=== PATIENT | male | born 1945 | race Caucasian/White ===

== ENCOUNTER 2019-12-23 13:48 | Inpatient (IN) | payer MEDICARE, BC ==
[~2019-12-23 13:48] MED LIST: Heparin 1,000 UNITS/ML VIAL ONE
[2019-12-23] MEDS ORDERED: EPINEPHrine 1 MG/10 ML Abboject SYRINGE ONE (13:50)
[2019-12-23] MEDS ORDERED: Norepinephrine 8 MG/0.9% NS 250 ML ONE (13:59)
[2019-12-23 14:30] LABS: Hemoglobin 7.6 g/dL (14.0-18.0); Mean Corpuscular HGB CONC 34.3 g/dL (32.0-36.0); Mean Corpuscular Hemoglobin 32.8 pg (27.0-31.0); Mean Corpuscular Volume 95.5 fL (78.0-98.0); Mean Platelet Volume 8.9 fL (7.4-10.4); Platelet Count 200 thou/uL (130-400); Red Blood Cell (RBC) Count 2.33 mill/uL (4.70-6.10)
[2019-12-23] MEDS ORDERED: Cefepime 2 GM VIAL ONE (14:47)
[2019-12-23 14:50] LABS: ALT (SGPT) 24 U/L (8-55); AST (SGOT) 68 U/L (5-34); Albumin 2.7 g/dL (3.4-4.8); Alkaline Phosphatase 123 U/L (40-110); Anion Gap 16 mmol/L (10-20); BUN (Urea Nitrogen) 29 mg/dL (8.4-25.7); Bilirubin, Total 0.4 mg/dL (0.2-1.2); Calc. Creatinine Clearance 0 mL/min (70-130); Calcium 8.4 mg/dL (7.8-10.44); Carbon Dioxide 17 mmol/L (23-31); Chloride 98 mmol/L (98-107); Estimated GFR-MDRD 40; Glucose 97 mg/dL (83-110); Potassium 5.2 mmol/L (3.5-5.1); Protein, Total 7.7 g/dL (5.8-8.1); Sodium 126 mmol/L (136-145)
[2019-12-23 14:58] LABS: Anisocytosis SLIGHT = 6-15 cells (100X) (0-5/hpf); Band 6 % (5-11); Lymphocytes 13 % (21-51); MDiff Complete? YES; Monocytes 14 % (0-10); Myelocyte 2 % (0-0); Neutrophil 65 % (42-75); Ovalocytes SLIGHT = 2-5 cells (100X) (0-1/hpf); Platelet Morphology Comment Appears Adequate; Poikilocytosis SLIGHT = 6-15 cells (100X) (0-5/hpf); Polychromasia SLIGHT = 2-3 cells (100X) (0-2/hpf); Spherocytes SLIGHT = 1-5 cells (100X) (None Seen); Tear Drops SLIGHT = 2-5 cells (100X) (0-1/hpf)
[2019-12-23 15:32] LABS: SARS-CoV-2 NAA Rapid Test Not Detected (NotDetected)
[2019-12-23 17:23] LABS: Lactic Acid 3.8 mmol/L (0.5-2.2)
--- NOTE | 2019-12-23 17:54 | RAD ---
PORTABLE CHEST: 12/23/19 PROVIDED CLINICAL HISTORY: Dyspnea. COMPARISON: 08/12/10. The cardiac silhouette appears enlarged. Median sternotomy changes are seen. Bilateral mid and lower lung zone air space disease with blunting of the right costophrenic angle that may reflect pleural fl uid. There is no evidence for pneumothorax. IMPRESSION: 1. Cardiomegaly. 2. Bilateral mid to lower lung zone consolidation, compatible with pneumonia in the appropriate clinical context. Follow-up is recommended. POS: CARY
[2019-12-23] MEDS ORDERED: Norepinephrine 8 MG/0.9% NS 250 ML IVPB SCH (18:30)
[2019-12-23] MEDS ORDERED: Acetaminophen 325 MG TAB PO PRN (18:30)
[2019-12-23] MEDS ORDERED: Ondansetron ODT 4 MG TAB SL PRN (18:30)
[2019-12-23] MEDS ORDERED: Ondansetron PF 4 MG/2 ML Vial IVP PRN (18:30)
[2019-12-23] MEDS ORDERED: HYDROcodone/Acetaminophen 5/325 mg Tablet PO PRN ×2 (18:30)
--- NOTE | 2019-12-23 19:05 | PDOC.HHP ---
Hospitalist HPI - History of Present Illness SOB and cough History of Present Illness: 74 YO M with a PMH of COPD on home O2, MDS and CAD who presented with c/o SOB and coughx 1 week duration. Pt was diagnosed with MDS earlier this year and just started chemo last week. He had chemo M-F x 5 days. Over the past few days, he has had SOB, CROSS and cough which have gotten progressively worse. Cough is non productive. No fever or chills. Upon presentation the ER, CXR shows BL PNA. Pt was also hypotensive requiring pressors. He was therefore admitted to the IMU for further mgt. Hospitalist ROS - Review of Systems Constitutional: reports: weakness, malaise. denies: fever, chills, sweats, other Eyes: denies: pain, vision change, conjunctivae inflammation, eyelid inflammation, redness, other ENT: denies: ear pain, ear discharge, nose pain, nose discharge, nose congestion, mouth pain, mouth swelling, throat pain, throat swelling, other Respiratory: reports: cough, shortness of breath, SOB with excertion. denies: dry, hemoptysis, pleuritic pain, sputum, wheezing, other Cardiovascular: denies: chest pain, palpitations, orthopnea, paroxysmal noc. dyspnea, edema, light headedness, other Gastrointestinal: denies: nausea, vomiting, abdominal pain, diarrhea, constipation, melena, hematochezia, other Genitourinary: denies: dysuria, frequency, incontinence, hematuria, retention, other Musculoskeletal: denies: neck pain, shoulder pain, arm pain, back pain, hand pain, leg pain, foot pain, other Skin: denies: rash, lesions, dinesh, bruising, other Neurological: reports: weakness. denies: numbness, incoordination, change in speech, confusion, seizures, other Hospitalist History - Past Medical History Cardiac: reports: CAD Pulmonary: reports: COPD Heme/Onc: reports: Other (MDS) - Past Surgical History Past Surgical History: reports: CABG, Hernia Repair - Family History Family History: reports: hypertension - Social History Smoking Status: Former smoker Tobacco Type: cigarettes Alcohol: reports: None Living Situation: With Family Domestic Violence: Negative Activity level: independent ambulation - Exam General Appearance: NAD, awake alert Eye: PERRL, anicteric sclera ENT: normocephalic atraumatic, no oropharyngeal lesions Neck: supple, symmetric, no JVD, no thyromegaly Heart: RRR, no murmur, no gallops, no rubs Respiratory: CTAB, no wheezes, no rales, no ronchi, normal chest expansion Gastrointestinal: soft, non-tender, non-distended, normal bowel sounds Extremities: no cyanosis, no clubbing, no edema Skin: normal turgor, no rashes Neurological: cranial nerve grossly intact, no focal deficits Musculoskeletal: normal tone, normal strength, no muscle wasting Psychiatric: normal affect, A&O x 3, oriented to place Hospitalist Results - Labs Result Diagrams: 12/23/19 14:17 12/23/19 14:17 Lab results: WBC 7.0 thou/uL (4.8-10.8) 12/23/19 14:17 Hgb 7.6 g/dL (14.0-18.0) L 12/23/19 14:17 Hct 22.3 % (42.0-52.0) L 12/23/19 14:17 MCV 95.5 fL (78.0-98.0) 12/23/19 14:17 Plt Count 200 thou/uL (130-400) 12/23/19 14:17 Band Neuts % (Manual) 6 % (5-11) 12/23/19 14:17 Sodium 126 mmol/L (136-145) L 12/23/19 14:17 Potassium 5.2 mmol/L (3.5-5.1) H 12/23/19 14:17 Chloride 98 mmol/L (98-107) 12/23/19 14:17 Carbon Dioxide 17 mmol/L (23-31) L 12/23/19 14:17 BUN 29 mg/dL (8.4-25.7) H 12/23/19 14:17 Creatinine 1.68 mg/dL (0.7-1.3) H 12/23/19 14:17 Glucose 97 mg/dL (83-110) 12/23/19 14:17 Lactic Acid 3.8 mmol/L (0.5-2.2) H 12/23/19 16:54 Calcium 8.4 mg/dL (7.8-10.44) 12/23/19 14:17 Total Bilirubin 0.4 mg/dL (0.2-1.2) 12/23/19 14:17 AST 68 U/L (5-34) H 12/23/19 14:17 ALT 24 U/L (8-55) 12/23/19 14:17 Alkaline Phosphatase 123 U/L (40-110) H 12/23/19 14:17 Serum Total Protein 7.7 g/dL (5.8-8.1) 12/23/19 14:17 Albumin 2.7 g/dL (3.4-4.8) L 12/23/19 14:17 Hospitalist H&P A/P - Problem (1) MONIQUE (acute kidney injury) Code(s): N17.9 - ACUTE KIDNEY FAILURE, UNSPECIFIED Status: Acute Assessment and Plan: Will hydrate and monitor Cr. (2) Acute and chronic respiratory failure with hypoxia Code(s): J96.21 - ACUTE AND CHRONIC RESPIRATORY FAILURE WITH HYPOXIA Status: Acute Assessment and Plan: Pt uses 2L of O2 at home. Will cont O2 support. (3) COPD (chronic obstructive pulmonary disease) Status: Acute Assessment and Plan: Will add sterois and nebs given acute illness. (4) PNA (pneumonia) Code(s): J18.9 - PNEUMONIA, UNSPECIFIED ORGANISM Status: Acute Assessment and Plan: Will get CT of chest to r/o effusion. Will consider getting CTA due to recent MDS and chemos hx when cr improves. Cont current abx, nebs and steroids (5) MDS (myelodysplastic syndrome) Code(s): D46.9 - MYELODYSPLASTIC SYNDROME, UNSPECIFIED Status: Acute Assessment and Plan: S/p recent chemo. Can follow up with his Onc after dc. (6) Sepsis Code(s): A41.9 - SEPSIS, UNSPECIFIED ORGANISM Status: Acute Qualifiers: Sepsis type: sepsis due to unspecified organism Acute respiratory failure type: with hypoxia Severe sepsis shock status: with septic shock Assessment and Plan: Pt was started on pressors. Will wean as tolerated. Cobt IVF and abx. (7) Hypotension Status: Acute Assessment and Plan: On pressors. Wean as tolerated - Plan Plan: PPx: SCDs and Lovenox. CODE: FULL. Dispo: Admit as inpt.
--- NOTE | 2019-12-23 19:15 | RAD ---
Chest AP view INDICATION: History of sepsis COMPARISON: Prior exam dated December 23, 2019 FINDINGS: Lungs: Worsening bilateral airspace disease consistent with pneumonia Cardiac silhouette: There is persistent moderate cardiomegaly Pulmonary vasculature: There is mild pulmonary vascular congestion appears slightly more pronounced Pleural spaces: There are small bilateral pleural effusions that appears slightly more pronounced Upper abdomen: No abnormality seen. Osseous structures: Midline sternotomy changes are stable Additional findings: None. IMPRESSION: 1. Worsening bilateral pneumonia. 2. Persistent moderate cardiomegaly with slightly more pronounced pulmonary vascular congestion and s mall bilateral pleural effusions. Component of CHF is suspected.
[2019-12-23 19:48] LABS: Hemoglobin 7.6 g/dL (14.0-18.0); Mean Corpuscular HGB CONC 32.8 g/dL (32.0-36.0); Mean Corpuscular Hemoglobin 31.5 pg (27.0-31.0); Mean Corpuscular Volume 96.1 fL (78.0-98.0); Mean Platelet Volume 8.8 fL (7.4-10.4); Platelet Count 218 thou/uL (130-400); RBC Distribution Width 17.2 % (11.5-14.5); Red Blood Cell (RBC) Count 2.42 mill/uL (4.70-6.10); White Blood Cell (WBC) Count 6.2 thou/uL (4.8-10.8)
[2019-12-23 20:00] LABS: ALT (SGPT) 55 U/L (8-55); AST (SGOT) 116 U/L (5-34); Albumin 2.6 g/dL (3.4-4.8); Alkaline Phosphatase 252 U/L (40-110); Anion Gap 13 mmol/L (10-20); BUN (Urea Nitrogen) 27 mg/dL (8.4-25.7); Bilirubin, Total 0.3 mg/dL (0.2-1.2); Calc. Creatinine Clearance 49 mL/min (70-130); Calcium 7.8 mg/dL (7.8-10.44); Carbon Dioxide 18 mmol/L (23-31); Chloride 102 mmol/L (98-107); Estimated GFR-MDRD 43; Globulin 4.9 g/dL (2.4-3.5); Glucose 108 mg/dL (83-110); Potassium 4.9 mmol/L (3.5-5.1); Protein, Total 7.5 g/dL (5.8-8.1); Sodium 128 mmol/L (136-145)
[2019-12-23 20:05] LABS: Band 9 % (5-11); Eosinophils 3 % (0-10); Hypochromia SLIGHT = 6-15 cells (100X) (0-5/hpf); Lymphocytes 27 % (21-51); MDiff Complete? YES; Monocytes 13 % (0-10); Neutrophil 48 % (42-75); Nucleated RBC 2 % (0); Platelet Morphology Comment Appears Adequate
[2019-12-23] MEDS: Sodium Chloride 0.9% 1,000 ML IV SCH (20:55)
[2019-12-23] MEDS: Enoxaparin Sodium 40 MG/0.4 ML SYRINGE SC SCH (21:44)
[2019-12-23] MEDS: methylPREDNISolone Sod Succ 40 MG VIAL IVP SCH (21:48)
[2019-12-23] MEDS: Cefepime 2 GM in Sodium Chloride 0.9% 100 ML IVPB SCH (21:57)
[2019-12-24] MEDS: Sodium Chloride 0.9% 1,000 ML IV SCH (02:25)
[2019-12-24 04:14] LABS: Hemoglobin 7.9 g/dL (14.0-18.0); Mean Corpuscular HGB CONC 32.6 g/dL (32.0-36.0); Mean Corpuscular Hemoglobin 31.5 pg (27.0-31.0); Mean Corpuscular Volume 96.5 fL (78.0-98.0); Mean Platelet Volume 8.6 fL (7.4-10.4); Platelet Count 202 thou/uL (130-400); Red Blood Cell (RBC) Count 2.51 mill/uL (4.70-6.10); White Blood Cell (WBC) Count 5.7 thou/uL (4.8-10.8)
[2019-12-24 04:15] LABS: Band 3 % (5-11); Elliptocytes SLIGHT = 2-5 cells (100X) (0-1/hpf); Lymphocytes 6 % (21-51); MDiff Complete? YES; Monocytes 10 % (0-10); Neutrophil 81 % (42-75); Nucleated RBC 1 % (0); Platelet Morphology Comment Appears Adequate
[2019-12-24 04:26] LABS: ALT (SGPT) 47 U/L (8-55); AST (SGOT) 80 U/L (5-34); Albumin 2.7 g/dL (3.4-4.8); Alkaline Phosphatase 229 U/L (40-110); Anion Gap 16 mmol/L (10-20); BUN (Urea Nitrogen) 28 mg/dL (8.4-25.7); Bilirubin, Total 0.3 mg/dL (0.2-1.2); Calc. Creatinine Clearance 51 mL/min (70-130); Calcium 7.9 mg/dL (7.8-10.44); Carbon Dioxide 15 mmol/L (23-31); Chloride 104 mmol/L (98-107); Estimated GFR-MDRD 45; Glucose 99 mg/dL (83-110); Potassium 5.5 mmol/L (3.5-5.1); Protein, Total 7.7 g/dL (5.8-8.1); Sodium 129 mmol/L (136-145)
[2019-12-24 04:39] LABS: Bacteria/HPF None Seen HPF (None Seen); Bilirubin Negative (Negative); Blood, Urine 1+ (Negative); Clarity Clear (Clear); Glucose, Urine (Dipstick) Normal (Negative); Ketone, Urine Trace mg/dL (Negative); Leukocyte Negative Leu/uL (Negative); Nitrite Negative (Negative); Protein, Urine (Dipstick) 50 mg/dL (Neg-Trace); Specific Gravity, Urine 1.024 (1.002-1.036); Squamous Epithelial None Seen HPF (0-3); Urobilinogen Normal mg/dL (Less than 2); WBC/HPF 0-3 HPF (0-3)
[2019-12-24 04:40] LABS: Urine Culture Reflex No No
[2019-12-24] MEDS: Cefepime 2 GM in Sodium Chloride 0.9% 100 ML IVPB SCH ×3 (06:09→21:28)
[2019-12-24] MEDS: methylPREDNISolone Sod Succ 40 MG VIAL IVP SCH ×3 (06:10→21:29)
[2019-12-24] MEDS ORDERED: FLU VACC QS2020-21(65YR UP)/PF 240 MCG/0.7 ML SYRINGE IM ONE (09:00)
[2019-12-24] MEDS ORDERED: Furosemide 40 MG/4 ML VIAL SLOW IVP SCH (09:30)
[2019-12-24] MEDS ORDERED: Tamsulosin HCl 0.4 MG CAP PO SCH (10:00)
--- NOTE | 2019-12-24 12:39 | CT ---
CT CHEST WITHOUT CONTRAST: 12/24/19 PROVIDED CLINICAL HISTORY: Pneumonia. COMPARISON: None. FINDINGS: The heart is enlarged. Vascular calcification, including coronary calcium, is seen. Median sternotomy changes are seen. There is extensive bilateral interstitial thickening and mixed ground glass opacity involving both kenisha ngs, primarily within the mid to lower lung zones, with relative sparing of the apices. There is no f rank consolidation evident. There is bilateral pleural fluid, small in degree. There is no evidence f or pneumothorax. The airway appears patent and of normal caliber. There is no evidence for thoracic lymph node enlargement with limitations due to lack of IV contrast material. The osseous structures demonstrate no concerning lytic or blastic lesions. The visualized portions of the upper abdomen appear unremarkable. IMPRESSION: Extensive bilateral interstitial and alveolar lung opacification involving the mid to lower lung zone s bilaterally with associated small pleural effusions. Given the lack of comparison examinations, inc luding lack of prior radiographs more recent than 2011, the chronicity of these findings is not certa in. Findings could reflect acute, chronic or acute on chronic processes, including infection, inflamm ation and fibrosis. Correlation with concerns for COVID pneumonia is recommended. Followup is recomme nded. Pulmonary consultation may be useful as indicated. POS: CARY
[2019-12-24] MEDS: Furosemide 40 MG/4 ML VIAL SLOW IVP SCH (13:49)
--- NOTE | 2019-12-24 13:54 | PDOC.HOSPP ---
- Subjective Encounter Date: 12/24/19 Encounter Time: 12:00 Subjective: has sob, no chest pain or palp says he had cardiac cath 2 weeks back at [facility] by when he was hospitalized there for cardiac reasons per patient he does not know if he has heart failure, neither does his girl friend at be dside he has discharged on home O2 2 weeks back quit smoking >10 yrs back he ambulates using walker from 2 weeks prior to that without asst devices. - Objective Vital Signs & Weight: Vital Signs (12 hours) Temp 12/24/19 11:14 98.2 F 12/24/19 07:20 98.0 F 12/24/19 03:46 97.3 F L Weight Weight 185 lb 3.013 oz Most Recent Monitor Data Heart Rate from ECG 96 NIBP 143/95 NIBP BP-Mean 111 Respiration from ECG 33 SpO2 100 I&O: 12/23/19 12/24/19 12/25/19 07:59 06:59 06:59 Intake Total 240 Output Total 350 Balance -110 Result Diagrams: 12/24/19 03:53 12/24/19 03:53 Hospitalist ROS - Medication Medications: Active Medications Generic Name Dose Route Start Last Admin Trade Name Freq PRN Reason Stop Dose Admin Enoxaparin Sodium 40 mg 12/23/19 21:00 12/23/19 21:44 Enoxaparin Sodium 40 Mg/0.4 Ml Syringe SC 40 mg 2100 DORIAN Administration Cefepime HCl 2 gm/ Sodium 100 mls @ 200 mls/hr 12/23/19 22:00 12/24/19 06:09 Chloride IVPB 100 mls Q8HR DORIAN Administration Methylprednisolone Sodium Succinate 40 mg 12/23/19 22:00 12/24/19 06:10 Methylprednisolone Sod Succ 40 Mg Vial IVP 40 mg Q8HR DORIAN Administration - Exam General Appearance: awake alert Eye: PERRL, anicteric sclera ENT: no oropharyngeal lesions, moist mucosa Neck: supple, JVD Heart: RRR, no murmur Respiratory: no wheezes, rales, rhonchi Gastrointestinal: soft, non-tender, non-distended, normal bowel sounds Extremities: no cyanosis, no edema Neurological: cranial nerve grossly intact, no focal deficits Psychiatric: normal affect, A&O x 3 Hosp A/P (1) Acute exacerbation of CHF (congestive heart failure) Code(s): I50.9 - HEART FAILURE, UNSPECIFIED Status: Suspected (2) MONIQUE (acute kidney injury) Code(s): N17.9 - ACUTE KIDNEY FAILURE, UNSPECIFIED Status: Acute (3) CAD (coronary artery disease) Code(s): I25.10 - ATHSCL HEART DISEASE OF [place] CORONARY ARTERY W/O ANG PCTRS Status: Chronic Qualifiers: Coronary Disease-Associated Artery/Lesion type: bypass graft [place] vs. transplanted heart: [place] heart Associated angina: without angina Qualified Code(s): I25.810 - Atherosclerosis of coronary artery bypass graft(s) without angina pectoris (4) COPD (chronic obstructive pulmonary disease) Status: Chronic Qualifiers: COPD type: COPD with acute exacerbation Qualified Code(s): J44.1 - Chronic obstructive pulmonary disease with (acute) exacerbation (5) Acute and chronic respiratory failure with hypoxia Code(s): J96.21 - ACUTE AND CHRONIC RESPIRATORY FAILURE WITH HYPOXIA Status: Acute (6) MDS (myelodysplastic syndrome) Code(s): D46.9 - MYELODYSPLASTIC SYNDROME, UNSPECIFIED Status: Chronic (7) PNA (pneumonia) Code(s): J18.9 - PNEUMONIA, UNSPECIFIED ORGANISM Status: Suspected Qualifiers: Pneumonia type: due to unspecified organism Laterality: bilateral (8) Sepsis Code(s): A41.9 - SEPSIS, UNSPECIFIED ORGANISM Status: Suspected Qualifiers: Sepsis type: sepsis due to unspecified organism Acute respiratory failure type: with hypoxia - Plan staff to obtain recent records from [facility] including cath/echo reports if available start gentle diuresis hypotension has resolved not sure if he was given steroids or his baseline cbc in view of MDS not sure what chemotherapy was initiated a week back for MDS continue vanc, cefepime, steroids, nebs cardiac and pulm consultations, echo for lv function alb is 2.7, h/h 7/24, creatinine around 1.5 has h/o cabg done >10 yrs back by , recent cath 2 weeks back by , PCP is Dr. Taras Bhatia PT to mobilize as tolerated is on nasal canula O2 tx to tele has underlying bph, start flomax d/w patient and girlfriend at bedside
[2019-12-24] MEDS ORDERED: Carvedilol 6.25 MG TAB PO SCH (14:30)
[2019-12-24] MEDS ORDERED: Vancomycin 1.5 GRAM/300 ML BAG 1.5 GM in Premix Bag 1 BAG IVPB SCH (15:00)
[2019-12-24] MEDS: hydrALAZINE 10 MG TAB PO SCH ×2 (15:56→21:29)
--- NOTE | 2019-12-24 20:29 | CON ---
DATE OF CONSULTATION: HISTORY OF PRESENT ILLNESS: The patient is a 74-year-old gentleman with a history of coronary artery disease, who presents with increasing dyspnea. The patient has a history of coronary artery bypass surgery x4. The patient is followed by Dr. Cole Jara at [facility]. He was recently admitted to the [facility] with chest pain. He underwent a cardiac catheterization and was apparently found to have patent coronary bypass grafts. He recently started on chemotherapy for myelodysplastic syndrome. The patient was admitted also with increasing dyspnea. He was hypotensive and was admitted to the ICU. The patient denies having any chest discomfort. He reports that he still feels markedly dyspneic. PAST MEDICAL HISTORY: 1. CAD. 2. Myelodysplastic syndrome. 3. Congestive heart failure. 4. Hypertension. PAST SURGICAL HISTORY: Hernia surgery and a coronary bypass graft surgery. SOCIAL HISTORY: Nonsmoker. MEDICATIONS: 1. Coreg 6.25 b.i.d. 2. Lipitor 40 daily. 3. Imdur 30 q.a.m. 4. Aspirin 81 daily. 5. Lasix. ALLERGIES: NO KNOWN DRUG ALLERGIES. REVIEW OF SYSTEMS: Ten-point system otherwise unremarkable. No history of easy bruising or bleeding bright red blood per rectum. PHYSICAL EXAMINATION: GENERAL: Pale gentleman, in no acute distress. VITAL SIGNS: Blood pressure was 137/94, heart rate is 108. NECK: Showed no jugular venous distention. LUNGS: Few crackles bilateral. HEART: Regular rate and rhythm. Normal S1, S2. ABDOMEN: Nondistended. EXTREMITIES: Show mild edema. LABORATORY RESULTS: Sodium 129, potassium 5.5, chloride 104, bicarbonate 15, BUN 20, creatinine 1.52. BNP was 1715. White blood cell count 5.7, hemoglobin 7.9, hematocrit 24.2, his platelets are 202. EKG normal sinus rhythm with a normal ECG. Echocardiogram revealed severe decrease in left ventricular systolic function. Estimated ejection fraction 15 to 20%. The left ventricle was severely dilated. IMPRESSION: 1. Congestive heart failure. 2. Severe cardiomyopathy. 3. History of coronary artery bypass surgery. 4. Renal insufficiency. 5. Myelodysplastic syndrome. PLAN: This gentleman presents with congestive heart failure. His ejection fraction is very low. We will obtain records from [facility] of his recent cardiac catheterization. We will hold Entresto with his hyperkalemia and renal insufficiency. The patient is being diuresed with Lasix. I would also avoid spironolactone with his markedly elevated potassium. We will follow this patient with you through his hospitalization. Job ID: [id number] SCOTTIE
[2019-12-24] MEDS: Carvedilol 6.25 MG TAB PO SCH (21:29)
[2019-12-24] MEDS: Enoxaparin Sodium 40 MG/0.4 ML SYRINGE SC SCH (21:29)
[2019-12-24] MEDS ORDERED: Melatonin 3 MG TAB PO PRN (21:48)
--- NOTE | 2019-12-24 22:37 | CON ---
DATE OF CONSULTATION: 12/24/2019 CHIEF COMPLAINT: Shortness of breath. HISTORY OF PRESENT ILLNESS: Mr. Miller is a 74-year-old gentleman who reports that he has been short of breath for several weeks. He states that he went to [facility] about two weeks ago with shortness of breath and chest discomfort. He reports that he had a cardiac catheterization done, but did not require a stent. He denies having been told that he had heart failure or other clinically significant cardiac disease. He was given oxygen to take at home and he was discharged. He has continued to have shortness of breath despite the use of oxygen. He has had mild PND and orthopnea, but denies any lower extremity edema. He has had cough and brings up sputum, but typically swallows rather than expectorate. He has not had any objective fever. He denies any chest pain, although he has had some tightness. He has not had any audible wheezing. He denies any palpitations. He has not had any objective fevers or chills. Denies contact with individuals known or suspected to have COVID. He returned to the emergency room here for evaluation of his shortness of breath. His chest x-ray demonstrated lower lung consolidation with wide differential including heart failure versus infection. He was placed on empiric antibiotic therapy. His COVID test was negative. He has been admitted for further therapy. Since admission, the patient has had an echocardiogram demonstrating marked impairment in LV function with an ejection fraction of 15% to 20%. He is also noted to have moderate pulmonary hypertension of approximately 35 mm. He is currently receiving diuretics, but has not noted significant improvement in dyspnea. A CAT scan shows bilateral patchy infiltrates and a small effusion. This pattern is reflective of a wide differential diagnosis including chronic interstitial lung disease, typical and atypical infections, as well as COVID. SOCIAL HISTORY: The patient is a 74-year-old gentleman. He is a former smoker, having quit in 2009 via hypnosis. He did not have occupational or industrial exposures. He has no history of tuberculosis. We do have old x-rays from several years ago which did not show underlying fibrotic lung disease at that point. MEDICATIONS: The patient's home medications include: 1. Aspirin 81 daily. 2. Atorvastatin 40 mg daily. 3. Coreg 6.25 b.i.d. 4. Lasix 40 daily, is now 60 mg daily. PAST MEDICAL HISTORY: Remarkable for known coronary disease with previous bypass. He has been diagnosed with myelodysplasia and recently received chemotherapy. That certainly expands the differential diagnosis, specifically to include atypical infections. REVIEW OF SYSTEMS: Remarkable as above. PHYSICAL EXAMINATION: VITAL SIGNS: Blood pressure 140/91, heart rate is 107, respiratory rate 36, saturation 96% on nasal flow oxygen. GENERAL: He is an elderly gentleman, appears older than his stated age. He is moderately tachypneic with shortened sentences, sitting upright in bed. HEENT: Shows no icterus. Oropharynx does not show any Rosio. NECK: Shows no adenopathy. LUNGS: Reveal bilateral crackles without wheezes. Respiratory efforts appear slightly shallow. There is no dullness. HEART: Regular rate and rhythm. He has no murmur or audible S3. ABDOMEN: Soft. There is no organomegaly. EXTREMITIES: He has trace edema. He has Alexander catheter and has had 2 L out already today. LABORATORY DATA: White count 5700, hemoglobin 7.9 with hematocrit of 24.2, platelet count 202,000. Differential includes 81 segs and 3 bands. Chemistry includes sodium 129, potassium 5.5, chloride 104, CO2 is 15, BUN 28, creatinine 1.5. AST is 80, alkaline phosphatase is 229, albumin is 2.7. His COVID serology is negative. IMAGING DATA: Chest x-ray and CT have been reviewed and I agree with findings as dictated above. IMPRESSION: 1. Progressive dyspnea. The patient has had symptoms over at least a couple weeks including a time when he was admitted to [facility] and underwent cardiac catheterization. His echocardiogram shows severely depressed left ventricular function of 15% to 25% in coordination with mild pulmonary hypertension. This is likely compounded by his underlying chronic obstructive pulmonary disease from his previous smoking. I do not necessarily think that he has COVID, although that clearly remains within the differential diagnosis. The pattern and symptoms are atypical for the usual community-acquired pneumonias, although atypical infections including atypical Mycobacterium, Pneumocystis, and fungal infections probably should be entertained in light of his history of myelodysplasia and chemotherapy. I do not think that he has traditional fibrotic lung disease based on work history or radiographic findings. 2. History of atherosclerotic vascular disease with severely reduced ejection fraction 15% to 20%. 3. History of myelodysplasia with recent chemotherapy. 4. Past tobacco abuse with probable chronic obstructive pulmonary disease. RECOMMENDATIONS: I agree with continued attempts at diuresis and adjustment of heart failure directed regimen. I also agree with empiric antibiotics. If he is not better soon, he may be a candidate for bronchoscopy with washings to evaluate for atypical infections. I am still somewhat concerned about the possibility of COVID given his radiographic findings; however, his COVID swab is negative. He is adequately oxygenating with current supplemental oxygen levels. He does not appear to need intubation and ventilatory support. Unfortunately, the case is still a little murky and we need additional data before we can milton into final diagnosis. While doing a bronchoscopy may be very enlightening, it is a fairly high-risk procedure given his cardiopulmonary status and the ongoing active consideration of COVID. Thank you for this very interesting consultation. Job ID: [id number]
[2019-12-25 00:39] LABS: Actual Bicarbonate (HCO3a) 16.1 mEq/L (22-28); Base Excess (BEa) -7.6 mEq/L (-2.0 to +3.0); CO2 Tension 26.6 mmHg (35.0-45.0); Calcium, Ionized (arterial) 1.19 mmol/L (1.12-1.30); Carboxyhemoglobin (COHb) 0.8 gm% (0.0-3.0); Hemoglobin (Hb) 8.5 g/dL (14.0-18.0); O2 Tension (PaO2), arterial 68.3 mmHg (> 70.0); Potassium - ABG Lab 5.13 mmol/L (3.70-5.30)
[2019-12-25 00:51] LABS: Puncture Site R BRACHIAL
[2019-12-25 04:57] LABS: Anion Gap 17 mmol/L (10-20); BUN (Urea Nitrogen) 35 mg/dL (8.4-25.7); Calc. Creatinine Clearance 47 mL/min (70-130); Calcium 8.6 mg/dL (7.8-10.44); Carbon Dioxide 15 mmol/L (23-31); Chloride 101 mmol/L (98-107); Estimated GFR-MDRD 41; Glucose 126 mg/dL (83-110); Potassium 5.1 mmol/L (3.5-5.1); Sodium 128 mmol/L (136-145)
[2019-12-25 05:18] LABS: Band 2 % (5-11); Hemoglobin 8.4 g/dL (14.0-18.0); Lymphocytes 10 % (21-51); MDiff Complete? YES; Mean Corpuscular HGB CONC 33.9 g/dL (32.0-36.0); Mean Corpuscular Hemoglobin 32.6 pg (27.0-31.0); Mean Corpuscular Volume 96.3 fL (78.0-98.0); Mean Platelet Volume 8.9 fL (7.4-10.4); Metamyelocyte 1 % (0-0); Monocytes 11 % (0-10); Neutrophil 76 % (42-75); Nucleated RBC 1 % (0); Platelet Count 185 thou/uL (130-400); Platelet Morphology Comment Appears Adequate; RBC Distribution Width 16.9 % (11.5-14.5); Red Blood Cell (RBC) Count 2.57 mill/uL (4.70-6.10); White Blood Cell (WBC) Count 5.4 thou/uL (4.8-10.8)
[2019-12-25] MEDS: Furosemide 40 MG/4 ML VIAL SLOW IVP SCH ×2 (05:23→14:36)
[2019-12-25] MEDS: Cefepime 2 GM in Sodium Chloride 0.9% 100 ML IVPB SCH ×2 (05:23→21:10)
[2019-12-25] MEDS: methylPREDNISolone Sod Succ 40 MG VIAL IVP SCH ×3 (05:23→21:10)
--- NOTE | 2019-12-25 08:01 | RAD ---
EXAM: Portable chest PROVIDED CLINICAL HISTORY: Pneumonia COMPARISON: 12/23/2019 FINDINGS: Significant interval change with respect to the prior examination is not apparent. IMPRESSION: As above.
[2019-12-25] MEDS: Acetaminophen 500 MG TAB PO SCH (08:59)
[2019-12-25] MEDS: Aspirin 81 mg Enteric Coated Tablet PO SCH (09:00)
[2019-12-25] MEDS: Tamsulosin HCl 0.4 MG CAP PO SCH (09:00)
[2019-12-25] MEDS: Carvedilol 6.25 MG TAB PO SCH ×2 (09:01→21:10)
[2019-12-25] MEDS: Atorvastatin Calcium 40 MG TAB PO SCH (09:01)
[2019-12-25] MEDS: hydrALAZINE 10 MG TAB PO SCH (09:01)
[2019-12-25] MEDS ORDERED: Ivabradine 5 MG TAB PO SCH ×2 (09:45→21:00)
[2019-12-25] MEDS ORDERED: hydrALAZINE 25 MG TAB PO SCH (09:45)
--- NOTE | 2019-12-25 11:04 | PRG ---
DATE OF SERVICE: 12/25/2019 SUBJECTIVE: A 74-year-old gentleman, who sees care at [facility], was admitted with respiratory failure. OBJECTIVE: VITAL SIGNS: Temperature 97, pulse 79, respirations 26, saturations 100% on 4 L, and blood pressure 151/89. CHEST: Bilateral rhonchi and crackles. CARDIAC: Normal S1 and S2. No gallops. ABDOMEN: No masses. LABORATORY DATA: White count platelet count 185. A pO2 of 68, pCO2 of 26% 4 L. Sodium 128, creatinine 1.6, and BUN 35. Echo showed EF of 15% to 20%. CT chest shows extensive honeycombing bilateral pleural effusion. ASSESSMENT: 1. Congestive heart failure, superimposed on possibly some chronic lung disease, though we have no old x-ray for comparison. 2. Renal failure, electrolyte imbalance. PLAN: Pulmonary vides, no need for vancomycin. Continue steroids, neb treatment, and diuretics. I doubt this is coronavirus infection. It is possible, he may have underlying ILD superimposed congestive heart failure, try and get some more information from [facility] if possible, particularly a chest x-ray. Job ID: [id number]
[2019-12-25] MEDS: hydrALAZINE 25 MG TAB PO SCH ×2 (14:37→21:10)
--- NOTE | 2019-12-25 16:21 | PDOC.HOSPP ---
- Subjective Encounter Date: 12/25/19 Encounter Time: 16:20 Subjective: Mr. Miller is a 74-year-old patient whose medical history includes coronary disease with previous bypass, he has ischemic cardiomyopathy with an EF around 15 to 20%, he presented to the hospital with increasing shortness of breath. He is diagnosed with heart failure exacerbation likely from systolic dysfunction. His echo here shows an EF between 15 and 20%. He is getting diuresed with very good day urinary output. Cardiology evaluation is ongoing as well. He is on guideline directed medical therapy. - Objective Vital Signs & Weight: Vital Signs (12 hours) Temp Pulse Resp BP Pulse Ox 12/25/19 16:11 96.9 F L 81 28 H 136/77 97 12/25/19 12:15 96.9 F L 87 28 H 141/85 H 99 12/25/19 07:28 97.0 F L 99 26 H 151/89 H 100 Weight Admit Weight 185 lb 3.013 oz Weight 188 lb 4.8 oz Most Recent Monitor Data Heart Rate from ECG 95 NIBP 140/91 NIBP BP-Mean 107 Respiration from ECG 36 SpO2 96 I&O: 12/24/19 12/25/19 12/26/19 06:59 06:59 06:59 Intake Total 1142 Output Total 2750 Balance -1608 Result Diagrams: 12/25/19 04:01 12/25/19 04:01 Radiology Reviewed by me: Yes EKG Reviewed by me: Yes Hospitalist ROS - Review of Systems Constitutional: reports: weakness Respiratory: reports: shortness of breath, SOB with excertion Cardiovascular: reports: paroxysmal noc. dyspnea, edema Neurological: reports: weakness - Medication Medications: Active Medications Generic Name Dose Route Start Last Admin Trade Name Freq PRN Reason Stop Dose Admin Acetaminophen 1,000 mg 12/25/19 09:00 12/25/19 08:59 Acetaminophen 500 Mg Tab PO 1,000 mg DAILY DORIAN Administration Albuterol/Ipratropium 3 ml 12/23/19 19:02 12/24/19 23:27 Ipratropium/Albuterol Sulfate 3 Ml Neb NEB 3 ml [id number] PRN Administration SOB &/or Wheezing Aspirin 81 mg 12/25/19 09:00 12/25/19 09:00 Aspirin 81 Mg Enteric Coated Tablet PO 81 mg DAILY DORIAN Administration Atorvastatin Calcium 40 mg 12/25/19 09:00 12/25/19 09:01 Atorvastatin Calcium 40 Mg Tab PO 40 mg DAILY DORIAN Administration Carvedilol 6.25 mg 12/24/19 21:00 12/25/19 09:01 Carvedilol 6.25 Mg Tab PO 6.25 mg BID DORIAN Administration Enoxaparin Sodium 40 mg 12/23/19 21:00 12/24/19 21:29 Enoxaparin Sodium 40 Mg/0.4 Ml Syringe SC 40 mg 2100 DORIAN Administration Furosemide 40 mg 12/24/19 14:00 12/25/19 14:36 Furosemide 40 Mg/4 Ml Vial SLOW IVP 40 mg 0600,1400 DORIAN Administration Hydralazine HCl 25 mg 12/25/19 15:00 12/25/19 14:37 Hydralazine 25 Mg Tab PO 25 mg TID DORIAN Administration Isosorbide Mononitrate 30 mg 12/25/19 09:00 12/25/19 09:01 Isosorbide Mononitrate Er 30 Mg Tab PO 30 mg DAILY DORIAN Administration Melatonin 3 mg 12/24/19 21:48 12/24/19 22:11 Melatonin 3 Mg Tab PO 3 mg HS PRN Administration Insomnia Methylprednisolone Sodium Succinate 40 mg 12/23/19 22:00 12/25/19 14:36 Methylprednisolone Sod Succ 40 Mg Vial IVP 40 mg Q8HR DORIAN Administration Tamsulosin HCl 0.4 mg 12/25/19 09:00 12/25/19 09:00 Tamsulosin Hcl 0.4 Mg Cap PO 0.4 mg DAILY DORIAN Administration - Exam General Appearance: NAD, awake alert Eye: PERRL ENT: normocephalic atraumatic, no oropharyngeal lesions, moist mucosa Neck: supple, symmetric, JVD Heart: RRR, no murmur, no gallops, no rubs, normal peripheral pulses, II/IV Gastrointestinal: soft, normal bowel sounds, no palpable masses Extremities: 1+ LE edema Skin: normal turgor, no lesions Neurological: cranial nerve grossly intact, no weakness Psychiatric: normal affect, normal behavior, A&O x 3 Hosp A/P (1) Acute and chronic respiratory failure with hypoxia Code(s): J96.21 - ACUTE AND CHRONIC RESPIRATORY FAILURE WITH HYPOXIA Status: Acute Plan: [place] secondary to CHF exacerbation. Continue O2 supplementation. (2) Acute exacerbation of CHF (congestive heart failure) Code(s): I50.9 - HEART FAILURE, UNSPECIFIED Status: Suspected Qualifiers: Heart failure type: systolic Qualified Code(s): I50.23 - Acute on chronic systolic (congestive) heart failure Plan: I agree with aggressive diuresis as we are doing. (3) COPD (chronic obstructive pulmonary disease) Status: Chronic Qualifiers: COPD type: chronic bronchitis Chronic bronchitis type: mucopurulent Qualified Code(s): J41.1 - Mucopurulent chronic bronchitis Plan: Continue bronchodilators. (4) PNA (pneumonia) Code(s): J18.9 - PNEUMONIA, UNSPECIFIED ORGANISM Status: Suspected Qualifiers: Pneumonia type: due to unspecified organism Laterality: bilateral Plan: This is suspected. Continue empiric IV antibiotics at this time. - Plan continue antibiotics, PT/OT, respiratory therapy, out of bed/ambulate, DVT proph w/lovenox #1. Acute respiratory failure with hypoxia. We will continue O2 supplementation. 2.. Acute CHF exacerbation likely systolic dysfunction. Echo shows an EF around 15%. I agree with diuresis. Continue guideline directed medical therapy. 3. Ischemic cardiomyopathy. His EF was 15 to 20%. We appreciate cardiology's recommendations. He apparently had ischemic work-up in the last few weeks with his escapement maker. 4. Hypertensive heart and chronic kidney disease. #5. Suspected pneumonia. I will continue empiric antibiotics for now.
--- NOTE | 2019-12-25 18:47 | CON ---
DATE OF CONSULTATION: 12/25/2019 REASON FOR CONSULTATION: Arrhythmia management and cardiomyopathy. CONSULTING PHYSICIAN: Dao Zhang MD HISTORY OF PRESENT ILLNESS: Mr. Miller is a 74-year-old gentleman, who presented to the hospital with increasing dyspnea. This had been of a progressive nature over the past few weeks. He is a long-time patient of Dr. Cole Jara, at [facility]. Records from hospitalization approximately one month ago were reviewed. He had been admitted with chest pain and underwent left heart catheterization, which revealed extensive gambell coronary artery disease, patent grafts x4, and no intervention was required. His problems include the following. PROBLEM LIST: 1. Coronary artery disease with prior coronary artery bypass graft x4 vessel on 08/11/[address] Crawford. a. ESPINOZA to LAD, saphenous vein graft to diagonal, OM1, and PDA. 2. Newly found systolic congestive heart failure with an LVEF of 15% to 20%. a. LVEF 60% to 65% by transthoracic echocardiogram on 10/25/2019. b. LVEF 65% in November 2003. 3. Essential hypertension. 4. COPD. 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 6. Chronic kidney disease. a. Baseline creatinine of approximately 1.7. 7. Psoriasis. 8. Myelodysplastic syndrome. PAST SURGICAL HISTORY: 1. Coronary artery bypass grafting in 2010. 2. Bone marrow biopsy and aspiration in April 2019. FAMILY HISTORY: Positive for heart disease in mother and father, age of onset is unknown. ALLERGIES: NO KNOWN DRUG ALLERGIES. HOME MEDICATIONS: 1. Furosemide 20 mg daily. 2. Albuterol q.8 hours via nebulizer. 3. Benadryl as needed. 4. Tylenol daily. 5. Carvedilol 6.25 mg b.i.d. 6. Atorvastatin 40 mg daily. 7. Vitamin C 500 mg daily. 8. Nitrostat as needed. 9. Imdur ER 30 mg daily. 10. Ecotrin 81 mg p.o. daily. SOCIAL HISTORY: Has a significant other, a long-term girlfriend. Denies any illicit drug use. Tobacco, is a former smoker with a 90 pack-year history, quit in 2008. Positive for alcohol consumption, approximately 20 cans of beer a week. PHYSICAL EXAMINATION: VITAL SIGNS: Height 5 feet and 10 inches. Weight 188 pounds. Temperature 96.9, pulse 87, blood pressure 141/85, and oxygen is 99% on 3.5 L via nasal cannula. GENERAL: The patient is alert, but appears sleepy. He is in no apparent distress, resting in a semi recumbent position. He is a fully oriented and a fair historian. He is normocephalic and atraumatic. His sclerae are anicteric. EOMs are intact. Oral mucosa is moist and pink with adequate dentition. NECK: Supple. Positive jugular venous distention. There is no lymphadenopathy. His trachea is midline. His heart rate is irregularly irregular with crisp S1 and S2. PMI is nondisplaced. LUNGS: Lung sounds are slightly diminished throughout with bibasilar crackles. ABDOMEN: Soft and nontender without palpable masses. Hepatojugular reflux is positive. EXTREMITIES: Warm and dry to touch. Well perfused without clubbing or cyanosis. Positive for bilateral lower extremity edema. NEUROLOGIC: Grossly intact. Nonfocal. Gait was not assessed. LABORATORY DATA: Hemoglobin 7.6 on admission, currently 8.4; platelet count 185. Chemistry; sodium 128, potassium 5.1, creatinine 1.65, AST 80, ALT 47, and alkaline phosphatase 229. BNP 1715.9. COVID PCR not detected on 12/23/2019. DIAGNOSTIC STUDIES: Telemetry and EKG shows sinus rhythm in the 70s to 80s. AL interval 198 milliseconds, QRS is 104 milliseconds, QT/QTC is 420/475 milliseconds respectively. Occasional brief episodes what appears to be 1:1 atrial tachycardia with ventricular rates approximately 138 beats per minute and a cycle length of 455 milliseconds lasting generally less than 2 minutes, often seconds. No atrial fibrillation or atrial flutter thus far. Echocardiogram on 12/24/2019, LVEF 15% to 20% with dilated left atrium measuring 4.83 cm. IMPRESSION: 1. Paroxysmal focal atrial tachycardia. 2. Congestive heart failure. 3. Newly diagnosed systolic heart failure. 4. Hypertension. 5. History of coronary artery disease with 4-vessel bypass and recent left heart catheterization revealing patent grafts with no percutaneous coronary intervention. 6. Chronic kidney disease. 7. Chronic anemia. 8. Hyponatremia, likely delusional. 9. Chronic obstructive pulmonary disease. PLAN AND RECOMMENDATIONS: Mr. Miller is a pleasant 74-year-old gentleman with a significant history of coronary artery disease and prior bypass. Just one month ago he had a preserved LVEF documented by echocardiogram with his log cut off sawyer, Dr. Jara. We now find that his LVEF has decreased severely and is now in the 15% to 20% range. He has had progressive dyspnea and his BNP is significantly elevated at 1700. He is currently being diuresed. On telemetry, we see he does have paroxysmal, relatively brief and low burden, episodes of a 1:1 atrial tachycardia with a cycle length of 455 milliseconds. He is asymptomatic and unaware of these episodes and at this point, I do not feel that it is significantly contributing to this clinical picture. Certainly with incessant atrial tachycardia with moderately elevated ventricular rates this can contribute to congestive heart failure and cardiomyopathy, but so far on telemetry, his burden remains quite low with most episodes being less than 1 minute in duration and episodes being grouped fairly closely together in spans of 5 minutes. For now, I would recommend optimizing his beta ronnell therapy with Coreg, which would help in quieting these episodes and also assist with his congestive heart failure. He will require guideline directed medication therapy for his cardiomyopathy and if LVEF remains severely depressed at less than 35%, may qualify for an ICD down the line. Certainly, a LifeVest prior to discharge should be arranged. Thank you for allowing me to participate in the care of this patient. Job ID: [id number]
[2019-12-25] MEDS: Mometasone 200 MCG/Formoterol 5 MCG 120 PUFF INHALER INH SCH (18:50)
[2019-12-25] MEDS: Enoxaparin Sodium 40 MG/0.4 ML SYRINGE SC SCH (21:10)
[2019-12-25] MEDS: Ivabradine 5 MG TAB PO SCH (22:22)
[2019-12-26 05:09] LABS: Anion Gap 17 mmol/L (10-20); BUN (Urea Nitrogen) 48 mg/dL (8.4-25.7); Calc. Creatinine Clearance 41 mL/min (70-130); Calcium 8.7 mg/dL (7.8-10.44); Carbon Dioxide 17 mmol/L (23-31); Chloride 101 mmol/L (98-107); Estimated GFR-MDRD 34; Glucose 131 mg/dL (83-110); Potassium 4.6 mmol/L (3.5-5.1); Sodium 130 mmol/L (136-145)
[2019-12-26 05:13] LABS: Hemoglobin 8.5 g/dL (14.0-18.0); Hypochromia SLIGHT = 6-15 cells (100X) (0-5/hpf); Lymphocytes 4 % (21-51); MDiff Complete? YES; Mean Corpuscular HGB CONC 33.7 g/dL (32.0-36.0); Mean Corpuscular Hemoglobin 31.8 pg (27.0-31.0); Mean Corpuscular Volume 94.6 fL (78.0-98.0); Monocytes 8 % (0-10); Neutrophil 88 % (42-75); Nucleated RBC 1 % (0); Platelet Count 152 thou/uL (130-400); Platelet Morphology Comment Appears Adequate; Red Blood Cell (RBC) Count 2.68 mill/uL (4.70-6.10); White Blood Cell (WBC) Count 8.9 thou/uL (4.8-10.8)
[2019-12-26] MEDS: Furosemide 40 MG/4 ML VIAL SLOW IVP SCH (05:32)
[2019-12-26] MEDS: methylPREDNISolone Sod Succ 40 MG VIAL IVP SCH (05:32)
[2019-12-26] MEDS: Mometasone 200 MCG/Formoterol 5 MCG 120 PUFF INHALER INH SCH ×3 (07:14→20:00)
[2019-12-26] MEDS: Acetaminophen 500 MG TAB PO SCH (08:44)
[2019-12-26] MEDS: Aspirin 81 mg Enteric Coated Tablet PO SCH (08:45)
[2019-12-26] MEDS: Cefepime 2 GM in Sodium Chloride 0.9% 100 ML IVPB SCH ×2 (08:45→21:05)
[2019-12-26] MEDS: Carvedilol 6.25 MG TAB PO SCH (08:45)
[2019-12-26] MEDS: Atorvastatin Calcium 40 MG TAB PO SCH (08:45)
[2019-12-26] MEDS: hydrALAZINE 25 MG TAB PO SCH (08:46)
[2019-12-26] MEDS: Tamsulosin HCl 0.4 MG CAP PO SCH (08:54)
[2019-12-26] MEDS: Ivabradine 5 MG TAB PO SCH ×2 (11:39→19:55)
[2019-12-26] MEDS ORDERED: Milrinone Lactate/D5W 20 MG in Premix Bag 1 BAG IV SCH (12:00)
--- NOTE | 2019-12-26 12:47 | PRG ---
DATE OF SERVICE: 12/26/2019 SUBJECTIVE: Julio Miller is a 74-year-old gentleman who remains weak, short of breath. He has cardiomyopathy. OBJECTIVE: VITAL SIGNS: Temperature 97, pulse 65, on 3 L, and blood pressure 120/69. CHEST: Bilateral rhonchi and crackles. CARDIAC: Normal S1, S2. No gallops. ABDOMEN: No masses. LABORATORY DATA: Creatinine 1.92, sodium 130. ASSESSMENT: 1. Congestive heart failure, seen by multiple cardiologists at this stage. 2. Possibly superimposed pneumonia, though I doubt. 3. Renal failure. Overall, prognosis is guarded. I will switch him over to oral prednisone. Continue cardiac care as per multiple Cardiology. Empiric treatment for his chronic obstructive pulmonary disease. Pulmonary is going to follow. Job ID: [id number]
--- NOTE | 2019-12-26 14:56 | PDOC.HOSPP ---
- Subjective Encounter Date: 12/26/19 Encounter Time: 14:54 Subjective: Mr. Miller is a 74-year-old patient seen and examined today. He was admitted to the hospital for CHF exacerbation. He is getting diuresed. His most recent echo showed a depressed EF around 15%. It is felt that his worsening heart failure was secondary to medication that he is getting for his myelodysplastic syndrome. - Objective Vital Signs & Weight: Vital Signs (12 hours) Temp Pulse Resp BP Pulse Ox 12/26/19 11:30 97.6 F 64 22 H 121/69 95 12/26/19 08:46 73 12/26/19 08:42 96.1 F L 77 22 H 131/75 97 12/26/19 08:00 97 12/26/19 07:16 95 12/26/19 07:15 73 20 95 12/26/19 07:14 73 16 95 12/26/19 03:57 98.2 F 66 15 130/74 98 Weight Admit Weight 185 lb 3.013 oz Weight 183 lb 6.4 oz Most Recent Monitor Data Heart Rate from ECG 95 NIBP 140/91 NIBP BP-Mean 107 Respiration from ECG 36 SpO2 96 I&O: 12/25/19 12/26/19 12/27/19 06:59 06:59 06:59 Intake Total 1142 1095 Output Total 2750 9305 Balance -3688 -632 Result Diagrams: 12/26/19 04:12 12/26/19 04:12 Radiology Reviewed by me: Yes EKG Reviewed by me: Yes Hospitalist ROS - Review of Systems ROS unobtainable: due to mental status Constitutional: reports: fever, weakness, malaise ENT: reports: ear pain Respiratory: reports: cough, shortness of breath, SOB with excertion Cardiovascular: reports: orthopnea, paroxysmal noc. dyspnea, edema - Medication Medications: Active Medications Generic Name Dose Route Start Last Admin Trade Name Freq PRN Reason Stop Dose Admin Acetaminophen 1,000 mg 12/25/19 09:00 12/26/19 08:44 Acetaminophen 500 Mg Tab PO 1,000 mg DAILY DORIAN Administration Albuterol/Ipratropium 3 ml 12/26/19 15:00 12/26/19 14:10 Ipratropium/Albuterol Sulfate 3 Ml Neb NEB Not Given [id number] DORIAN Aspirin 81 mg 12/25/19 09:00 12/26/19 08:45 Aspirin 81 Mg Enteric Coated Tablet PO 81 mg DAILY DORIAN Administration Atorvastatin Calcium 40 mg 12/25/19 09:00 12/26/19 08:45 Atorvastatin Calcium 40 Mg Tab PO 40 mg DAILY DORIAN Administration Enoxaparin Sodium 40 mg 12/23/19 21:00 12/25/19 21:10 Enoxaparin Sodium 40 Mg/0.4 Ml Syringe SC 40 mg 2100 DORIAN Administration Cefepime HCl 2 gm/ Sodium 100 mls @ 200 mls/hr 12/25/19 21:00 12/26/19 08:45 Chloride IVPB 100 mls Q12HR DORIAN Administration Milrinone Lactate/Dextrose 20 100 mls @ 3.12 mls/hr 12/26/19 12:00 12/26/19 13:35 mg/ Device IV 100 mls INF DORIAN Administration Protocol 0.125 MCG/KG/MIN Ivabradine 5 mg 12/25/19 21:00 12/26/19 11:39 Ivabradine 5 Mg Tab PO 5 mg BID DORIAN Administration Melatonin 3 mg 12/24/19 21:48 12/24/19 22:11 Melatonin 3 Mg Tab PO 3 mg HS PRN Administration Insomnia Mometasone Furoate/Formoterol Fumar 2 puff 12/25/19 18:30 12/26/19 07:14 Mometasone 200 Mcg/Formoterol 5 Mcg 120 Puff Inhaler INH 2 puff BID-RT DORIAN Administration Tamsulosin HCl 0.4 mg 12/25/19 09:00 12/26/19 08:54 Tamsulosin Hcl 0.4 Mg Cap PO 0.4 mg DAILY DORIAN Administration - Exam General Appearance: awake alert, ill appearing Eye: PERRL ENT: normocephalic atraumatic, no oropharyngeal lesions, moist mucosa Neck: supple, no JVD, no lymphadenopathy Heart: RRR, no murmur, no gallops, no rubs, normal peripheral pulses Respiratory: CTAB, no wheezes, no rales, no ronchi, normal chest expansion Gastrointestinal: soft, non-tender, non-distended, normal bowel sounds Extremities: 2+ LE edema Neurological: cranial nerve grossly intact, normal sensation to touch, no focal deficits, no new deficit Psychiatric: normal affect, normal behavior, A&O x 3, oriented to person, oriented to place, oriented to time Hosp A/P (1) Acute and chronic respiratory failure with hypoxia Code(s): J96.21 - ACUTE AND CHRONIC RESPIRATORY FAILURE WITH HYPOXIA Status: Acute (2) Acute exacerbation of CHF (congestive heart failure) Code(s): I50.9 - HEART FAILURE, UNSPECIFIED Status: Suspected Qualifiers: Heart failure type: systolic Qualified Code(s): I50.23 - Acute on chronic systolic (congestive) heart failure (3) COPD (chronic obstructive pulmonary disease) Status: Chronic Qualifiers: COPD type: chronic bronchitis Chronic bronchitis type: mucopurulent Qualified Code(s): J41.1 - Mucopurulent chronic bronchitis (4) PNA (pneumonia) Code(s): J18.9 - PNEUMONIA, UNSPECIFIED ORGANISM Status: Suspected Qualifiers: Pneumonia type: due to unspecified organism Laterality: bilateral - Plan #1. Acute respiratory failure with hypoxia. We will continue O2 supplementation. 2.. Acute CHF exacerbation likely systolic dysfunction. Echo shows an EF around 15%. I agree with diuresis. Continue guideline directed medical therapy. 12/26/2019. Continue diuresis as above. 3. Ischemic cardiomyopathy. His EF was 15 to 20%. We appreciate cardiology's recommendations. He apparently had ischemic work-up in the last few weeks with his house wirer helper. 4. Hypertensive heart and chronic kidney disease. #5. Suspected pneumonia. I will continue empiric antibiotics for now. #6. History of myelodysplastic syndrome. He is on Vidaza.
--- NOTE | 2019-12-26 15:16 | SPC ---
SPC CVP LINE PICC INITAL >5: 12/26/2019 3:13 PM INDICATION: Need for long-term IV access PROCEDURE: Peripherally placed 51 cm single lumen power PICC line. PICC Line Placement: The left arm was prepped and draped in sterile fashion. One percent lidocaine was used for local anesthetic. Under fluoroscopic and ultrasound guidance, the left basilic vein was patent and accessed with a micr opuncture needle. A guide wire was then advanced into the left basilic vein. A vascular sheath was then advanced over a guide wire, and a single lumen PICC line was trimmed. The PICC line was th en advanced into the central venous system. A final placement film demonstrates the tip of the catheter terminated in the caval-atrial junction. After confirmation of the catheter position, the catheter was sutured in place at the skin entry site . There was no immediate complication. Total fluoroscopic time 2.7 minutes. Total exposure 10,137 mgray/sq cm IMPRESSION: Peripheral placement of a single lumen power PICC line into the left basilic vein using fluoroscopic and ultrasound guidance.
[2019-12-26] MEDS ORDERED: Loratadine 10 MG TAB PO PRN (17:56)
[2019-12-26] MEDS ORDERED: Furosemide 40 MG/4 ML VIAL SLOW IVP SCH (18:00)
[2019-12-26] MEDS ORDERED: Magnesium 2 GM/50 ML 2 GM in Premix Bag 1 BAG IVPB SCH (18:00)
[2019-12-26] MEDS ORDERED: Nitroglycerin 0.4 MG TAB (25 Tab Bottle) ONE (18:34)
[2019-12-26] MEDS: Enoxaparin Sodium 40 MG/0.4 ML SYRINGE SC SCH (19:55)
[2019-12-26] MEDS ORDERED: ALPRAZolam 0.25 MG TAB PO SCH (20:30)
[2019-12-27 04:25] LABS: Band 3 % (5-11); Hemoglobin 7.9 g/dL (14.0-18.0); Lymphocytes 7 % (21-51); MDiff Complete? YES; Mean Corpuscular HGB CONC 34.2 g/dL (32.0-36.0); Mean Corpuscular Hemoglobin 32.6 pg (27.0-31.0); Mean Corpuscular Volume 95.3 fL (78.0-98.0); Mean Platelet Volume 10.4 fL (7.4-10.4); Metamyelocyte 1 % (0-0); Monocytes 10 % (0-10); Neutrophil 79 % (42-75); Platelet Count 129 thou/uL (130-400); Platelet Morphology Comment Appears Adequate; RBC Distribution Width 16.6 % (11.5-14.5); Red Blood Cell (RBC) Count 2.43 mill/uL (4.70-6.10); White Blood Cell (WBC) Count 11.9 thou/uL (4.8-10.8)
[2019-12-27 04:26] LABS: Anion Gap 16 mmol/L (10-20); BUN (Urea Nitrogen) 54 mg/dL (8.4-25.7); Calc. Creatinine Clearance 37 mL/min (70-130); Calcium 8.7 mg/dL (7.8-10.44); Carbon Dioxide 19 mmol/L (23-31); Chloride 101 mmol/L (98-107); Estimated GFR-MDRD 31; Glucose 130 mg/dL (83-110); Magnesium 2.7 mg/dL (1.6-2.6); Potassium 3.7 mmol/L (3.5-5.1); Sodium 132 mmol/L (136-145)
[2019-12-27] MEDS ORDERED: Furosemide 40 MG/4 ML VIAL SLOW IVP SCH ×2 (06:00→13:30)
[2019-12-27] MEDS: Mometasone 200 MCG/Formoterol 5 MCG 120 PUFF INHALER INH SCH ×3 (07:30→19:27)
--- NOTE | 2019-12-27 07:39 | CON ---
DATE OF CONSULTATION: 12/26/2019 SERVICE: Advanced Heart Failure Cardiology Consulting Service REASON FOR CONSULTATION: Management of difficult acute heart failure. HISTORY OF PRESENT ILLNESS: Mr. Julio Miller, a 74-year-old gentleman with known history of coronary artery disease and hypertension, presented with severe shortness of breath and acute heart failure. His problem started about 1 year ago. At that time, he can walk two blocks. He then developed progressive shortness of breath and fatigue. About 6 months ago, he can walk about one block. At that time, he can still mow grass. Three months ago, his walking distance decreased some more. He can go from his house to his truck and back and that is it. About October 2019 timeframe, his left ventricular ejection fraction by echocardiogram was reported to be about 60%. In November 2019, he developed palpitations and chest pain and severe shortness of breath. He was admitted to [facility] in [place]. He was also diagnosed with myelodysplastic syndrome causing anemia. His hemoglobin would fall to about 6. He required multiple rounds of transfusions. In November , due to combination of chest pains and palpitations, a coronary angiogram was done. It showed all his bypass grafts were open. Thus, there was no significant coronary artery disease that can explain his symptoms. It was thought that it was worsening myelodysplastic syndrome. He was placed on oxygen. MDS treatment was started. He was sent home after 2 days. Mr. Miller says starting of the MDS treatment really made things worse. He became severely short of breath to the point where he has shortness of breath while sitting still. He was not able to stand for a shower at all. He cannot walk from the bed to the bathroom. Even though he sleeps on two pillows for last 3 weeks, he will have nightly PND. He will wake up in middle of the night, feeling severe short of breath, needed to sit up. However, throughout this time, he denied any peripheral edema. With this severe shortness of breath, unable to do any physical activity, caused him to seek care. They called ambulance. Since [facility] is closer to their house, he was brought to [facility]. Since admission, he was treated with antibiotics, IV steroids, and also diuretics. He said that he really has not gotten any better since admission. Combination of worsening renal function and difficult situation, a consult was requested. A call was made to [facility]. Dr. Cole Jara answered the call. It was described that the patient did receive a medication called Vidaza as part of the MDS treatment. PAST MEDICAL HISTORY: 1. Recently diagnosed myelodysplastic syndrome with Vidaza treatment. 2. Coronary artery disease, post coronary artery bypass x4 in 2010. 3. COPD. However, he really did not need any treatment for COPD. Consequently, it was likely to be mild 4. Type 2 diabetes at one time, but he is currently not being treated. 5. Hypertension. 6. Hyperlipidemia. SOCIAL HISTORY: 1. He smoked for 40 years, but stopped in 2008. 2. Alcohol use, he denies any current alcohol use. He stopped drinking alcohol in the year 2008. 3.Illicit drug use, he denied any illicit drug use. 4.He lives with his girlfriend for 20 years. FAMILY HISTORY: 1.His father of unknown cause at age 70s. 2.His mother in age 80s of colon complications. 3.He has a brother who at age 69 from myocardial infarction. He also had another brother who in his 70s with cancer. REVIEW OF SYSTEMS: GENERAL: Fatigue. HEENT: There is no change in vision, hearing, or swallowing. PULMONARY: See HPI. CARDIAC: See HPI. GI: There is no nausea, vomiting, or diarrhea. : He did not report any difficulty in urination. However, he does have a Alexander inserted already. He said that it helps him, because he does not have to get up and walk to the bathroom. MUSCULOSKELETAL: He is not complaining of any joint pains or muscle weaknesses. INTEGUMENT: There is no new skin breakdown. NEUROLOGIC: There are no focal deficits or weaknesses. ALLERGIES: THERE ARE NO KNOWN DRUG ALLERGIES. CURRENT MEDICATIONS: 1. Albuterol and ipratropium nebs q.4 hours p.r.n. 2. Aspirin 81 mg daily. 3. Atorvastatin 40 mg at bedtime. 4. Cefepime at 2 g q.12 hours. 5. Enoxaparin 40 mg nightly. 6. Furosemide 40 mg IV b.i.d. 7. Ivabradine 5 mg b.i.d. 8. Melatonin 3 mg at bedtime. 9. Carvedilol 6.25 mg b.i.d. 10. Steroids have been titrated down to prednisone of 40 mg daily. 11. Flomax 0.4 mg daily. 12. Hydralazine 25 mg t.i.d. 13. Imdur at 30 mg daily. PHYSICAL EXAMINATION: VITAL SIGNS: Showed heart rate 73, blood pressure 127/72. He is on 3 L of oxygen, saturating at 95%. GENERAL: He is alert and conversational, but visibly short of breath. He only can sustain short sentences. HEENT: Show EOMI. Oropharynx is benign with moist mucosa. There is no prominent erythema. No exudate. NECK: His JVP is very elevated. It is right at the earlobe, which is about 15 cm. PULMONARY: He has significant Velcro crackles in bilateral lungs, much more prominent high on the left. CARDIAC: Mostly regular rate and rhythm with 2/6 holosystolic murmur at the left sternal border, likely to be tricuspid murmur. ABDOMEN: Soft, nontender, with positive bowel sounds. EXTREMITIES: Lower extremities are without edema. There are palpable dorsalis pedis pulses bilaterally. : Alexander catheter is in place. LABORATORY VALUES: White cell count 8.9, hemoglobin 8.5, hematocrit 25, and platelets are 152. His chemistry shows sodium 130, potassium 4.6, chloride 101, bicarb is 17, BUN 48, and creatinine 1.92, this is a significant increase from 1.5. He also has a mildly elevated AST at 80 and moderately elevated ALT of 229. His BNP is very elevated at 1716. His chest x-ray was also reviewed. It showed bilateral infiltrates and also reticular nodular pattern, this resembles pneumonitis or fibrosis. However, there can be some pulmonary edema there too. Echocardiogram from December 24, 2019, was also reviewed. 1.It showed LVIDd of 4.5 cm. 2.Left ventricular ejection fraction of approximately between 20% to 25%. 3.There is mitral regurgitation. 4.There is restrictive filling pattern suggesting severe diastolic dysfunction. 5.His right ventricle is moderately dilated. His right ventricle has mild dysfunction. 6.There is tricuspid valve regurgitation present with an estimated trans-gradient at 25, however, this could be underestimated. 7. His IVC is dilated at about 2.5 cm without collapse. Thus, he has a high CVP, probably at least 15. 8.There is also small amount of pericardial effusions. ASSESSMENT: An unfortunate 74-year-old gentleman, likely is suffering from adverse effects of Vidaza. There is a small retrospective study showing Vidaza causing acute heart failure and also pneumonitis. Mr. Miller is demonstrating both symptoms and signs of acute heart failure and pneumonitis. Worsening of the symptoms and EF decreasing down to 20% post treatment strongly suggest acute heart failure. His coronary angiogram was done on November 28 of this year, thus coronary artery disease is not the likely culprit. His chest x-ray looks awful. It resembles pneumonitis. The acute heart failure consists of both systolic and diastolic dysfunctions. It is likely a nonischemic cardiomyopathy. He also has dilated right ventricle with right ventricular dysfunction to suggest there is acute worsening in the lung causing right ventricular dysfunction. Review of telemetry showed that he did have some short runs of atrial tachycardia, which can be flutter or multifocal atrial tachycardia. However, it is currently quiescent. He is also suffering from acute renal dysfunction due to heart failure and insufficient cardiac output to sustain diuresis. This combination of acute heart failure, pneumonitis, and acute renal failure puts him at very high risk for poor outcome. At this point, we will need to maximize his cardiac output under this condition to support recovery of renal function and offload any fluids. He is already on steroids for his lungs. It is uncertain that his heart or his lungs can recover. For now, we will do the best we can. Please see the following for my recommendations. RECOMMENDATIONS: 1. Start milrinone at 0.125 mcg/kg per minute; if systolic blood pressure maintained above 100, increase to 0.25 mcg/kg per minute. This is to augment both right and left heart and also drop his PA pressures, so thereby giving better cardiac output to relieve pulmonary edema and rescue his kidneys. The milrinone may need to be titrated to 0.375 mcg/kg per minute. At this stage, he likely is going to need milrinone for extended period of time. 2. Change from carvedilol to Toprol-XL. This is to decrease beta-2 antagonism. He needs all the help he can get for his lungs, plus Toprol-XL has better rate control capabilities. 3. For now, stop hydralazine and stop isosorbide mononitrate. He will need sufficient blood pressure to allow up titration of milrinone. 4. [address] PICC line. He will need long-term milrinone. 5. Please consider noncontrast CT scan to document pneumonitis. 6. With this combination of difficult situations, we may need to consider transferring him to a center who can provide higher level of care. It has been a pleasure taking care of Mr. Miller. If you have any questions, please give me a call. This is extended visit including personally performing history and physical, reading echocardiogram, reading chest x-ray, calling and coordinating care, calling external health care provider, and working with Mr. Miller and his girlfriend for development of agreeable treatment plan. The time used is 75 minutes. Job ID: [id number] MTDD
[2019-12-27] MEDS ORDERED: Potassium Chloride 20 MEQ TAB PO SCH (09:30)
[2019-12-27] MEDS: Aspirin 81 mg Enteric Coated Tablet PO SCH (09:35)
[2019-12-27] MEDS: predniSONE 20 MG TAB PO SCH (09:35)
[2019-12-27] MEDS: Atorvastatin Calcium 40 MG TAB PO SCH (09:36)
[2019-12-27] MEDS: Acetaminophen 500 MG TAB PO SCH (09:36)
[2019-12-27] MEDS: Tamsulosin HCl 0.4 MG CAP PO SCH (09:38)
[2019-12-27] MEDS: Ivabradine 5 MG TAB PO SCH ×2 (09:38→22:03)
[2019-12-27] MEDS: Cefepime 2 GM in Sodium Chloride 0.9% 100 ML IVPB SCH (10:06)
--- NOTE | 2019-12-27 10:15 | CT ---
Chest CT without contrast: 12/27/2019 COMPARISON: 12/24/2019 HISTORY: Pneumonitis, shortness of breath, heart surgery TECHNIQUE: Axial CT imaging at 5 mm intervals obtained from the thoracic inlet through the upper abdo men without contrast. Coronal and sagittal reformatted imaging is obtained. FINDINGS: The lack of contrast media limits assessment of the imaged viscera, the vascular structures , and for lymphadenopathy. There is a left upper extremity PICC with distal tip in the region of the proximal right atrium. Midline sternotomy wires and mediastinal clips are present. There is extensive coronary arterial calc ification present. Limited assessment of the upper abdomen demonstrates no acute findings. There are small bilateral pleural effusions which are larger than on the prior examination. There is extensive coarse linear interstitial density/fibrotic change within the left upper lobe/ling yisel, the inferior aspect of the right upper lobe, and throughout both lower lobes in the right middle lobe with slight sparing of the lung apices, unchanged when compared to the 12/24/2019 examinat ion. No pneumothorax is seen. There are scattered areas of superimposed groundglass opacity within the bilateral upper lobes, the right middle lobe, and bilateral lower lobes, also similar when compar ed to the recent prior chest CT. Calcified lymph nodes are noted within the mediastinum and the right hilum. Review of the osseous structures demonstrates no worrisome lytic or blastic bone lesions. 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 However, the extensive fibrotic changes, pleural fluid, and areas of groundglass opacity appear new when compared to a prior chest radiograph performed 08/12/2010 . IMPRESSION: Extensive fibrotic change with superimposed groundglass/alveolar opacity and small slight ly enlarging bilateral pleural effusions. Findings may represent acute on chronic disease with pulmonary edema and nonspecific infectious pneumonitis possibilities. The fibrotic changes may be a c hronic finding or could represent acute development of fibrosis associated with possible Covid pneumonia. Clinical correlation and follow-up imaging is essential.
--- NOTE | 2019-12-27 10:23 | PRG ---
DATE OF SERVICE: 12/27/2019 SUBJECTIVE: Mr. Miller had a good late evening and this morning. He said that he is feeling better. He is feeling more energetic. He is also breathing easier. Upon entering, he was lying flat. So, this is a significant improvement. He seemed to have a much better outlook about the whole process. He was able to eat his breakfast. REVIEW OF SYSTEMS: GENERAL: Please see above. HEENT: There is no change in vision, hearing, or swallowing. PULMONARY: He is still short of breath. CARDIAC: He does not complain of palpitations, chest pain, or syncope. GI: There is no nausea, vomiting, diarrhea. : He is on a Alexander catheter. MUSCULOSKELETAL: There is no complaint of joint pains, muscular pains. INTEGUMENT: There is no new skin breakdown. NEUROLOGIC: There are no focal deficits or weaknesses. CURRENT MEDICATIONS: 1. Aspirin 81 mg daily. 2. Atorvastatin 40 mg at bedtime. 3. Cefepime at 2 g daily. 4. Enoxaparin 40 mg at bedtime. 5. Furosemide 40 mg IV b.i.d. 6. Ivabradine at 5 mg b.i.d. 7. Loratadine at 10 mg daily for itching. 8. Melatonin 3 mg p.r.n. 9. Toprol-XL 12.5 mg q.12 hours. 10. Milrinone 0.25 mcg/kg per minute. 11. Dulera 200/5 two puffs b.i.d. 12. Prednisone 40 mg daily. 13. Flomax 0.4 mg daily. PHYSICAL EXAMINATION: Telemetry is reviewed. In general, he has less PAT, less MAT, less arrhythmia today than yesterday. However, he did have one 4-beat run of nonsustained ventricular tachycardia like morphology about 7:30 p.m. last night during PAT. Since then, he has been quiet. VITAL SIGNS: Right now, heart rate 73, blood pressure 141/82, his oxygen saturation is about 95% on 4 L nasal cannula. GENERAL: He is alert and conversational, much more relaxed today, lying flat in bed, resting comfortably. HEENT: Shows EOMI. Oropharynx is benign with moist mucosa. NECK: Sitting about 45 degrees, JVP is elevated at about 13 cm, a little bit below his earlobe (improved). PULMONARY: He has crackles, much more prominent on the left lung, but less so on the right base. CARDIAC: Regular rate and rhythm with normal S1 and S2. There is 2/6 holosystolic murmur at the left sternal border. ABDOMEN: Soft, nontender. Positive bowel sounds. GENITOURINARY: Alexander catheter is in place. EXTREMITIES: Lower extremities are without edema. There are palpable dorsalis pedis pulses. LABORATORY VALUES: Sodium is improved to 132, potassium is decreased to 3.7, bicarb has improved to 19, BUN has worsened slightly to 54, creatinine has worsened slightly at 2.08. His BNP has significantly increased to 4366. ASSESSMENT: 74-year-old gentleman is suffering from adverse effects of azacitidine. This medication has known to cause acute heart failure and pneumonitis. He may get worse before he gets better. Apparently, milrinone is having some positive effect to provide some relief, but his renal function and arrhythmia will be the limitation. Unfortunately, I do not have a good solution for his pneumonitis. At this time, we will try to optimize his cardiac medications to provide support to his right ventricle and left ventricle and also improve diastolic function. Thereby, improving cardiac output to his kidneys to save his kidneys. Please see the following for my recommendations. RECOMMENDATIONS: 1. Increase milrinone to 0.375 mcg/kg per minute. 2. Increase Toprol-XL to 25 mg p.o. q.12 hours. 3. Restart hydralazine at 10 mg p.o. q.8 hours, we may increase that. I need to see how his blood pressure will do throughout the day before we increase hydralazine. 4. We may restart isosorbide dinitrate again, but then we need to see his blood pressure first. 5. Hold off on Lasix 40 mg IV this afternoon for now. I want to wait as long as possible. We can give it p.r.n. this afternoon if he gets short of breath or tonight. 6. Please give K-Dur 40 mEq one dose now. 7. Please give K-Dur 20 mEq twice a day. We need to supplement the potassium. We need to get it back up to above 4. It has been a pleasure taking care of Mr. Miller. If you have any questions, please give me a call. The total time spent on this patient today is about 40 minutes. These include personally performing history and physical, reviewing telemetry, and coordinating care with Dr. Albert and Dr. Page. Addendum: 2nd dose of furosemide 40 mg IV was given about 14:30. Job ID: [id number] MTDD
--- NOTE | 2019-12-27 11:26 | PRG ---
DATE OF SERVICE: 12/27/2019 SUBJECTIVE: Julio Miller is a 74-year-old gentleman. This morning, he is somewhat better. OBJECTIVE: VITAL SIGNS: Temperature is 97 on 3 L, blood pressure 141/82. I's and O's are negative. CHEST: Bilateral crackles. CARDIAC: Normal S1 and S2. No gallops. ABDOMEN: No masses. LABORATORY DATA: Pertinent for anemia, H and H 7 and 23. Creatinine 2, BUN 54. CT chest was ordered, which shows extensive fibrotic changes and pleural effusion. IMPRESSION: 1. Congestive heart failure, superimposed on what appears to be underlying pulmonary fibrosis, maybe superimposed pneumonia. 2. Renal failure. Switch over to oral medication and oral steroids. Disposition as per Cardiology. Job ID: [id number]
--- NOTE | 2019-12-27 13:54 | PDOC.EP ---
- Subjective Date: 12/27/19 Time: 08:00 Interval History: Feeling somewhat improved today. He feels more alert and less SOB. Still very weak. - Review of Systems Constitutional: reports: weakness. denies: chills, fever, malaise Respiratory: reports: cough, shortness of breath. denies: hemoptysis, sputum, wheezing Cardiology: denies: chest pain, edema, heart racing, light headedness, palpitations, passing out Gastrointestinal: denies: abdominal pain, constipation, nausea, vomitting Musculoskeletal: denies: unstable gait, falls, leg pain - Objective Allergies/Adverse Reactions: Allergies Allergy/AdvReac Type Severity Reaction Status Date / Time No Known Allergies Allergy Verified 12/23/19 20:47 Current Medications Acetaminophen (Acetaminophen 500 Mg Tab) 1,000 mg PO DAILY [facility] Last Admin: 12/27/19 09:36 Dose: 1,000 mg Documented by: Albuterol/Ipratropium (Ipratropium/Albuterol Sulfate 3 Ml Neb) 3 ml NEB [id number] SCH Last Admin: 12/27/19 10:43 Dose: 3 ml Documented by: Aspirin (Aspirin 81 Mg Enteric Coated Tablet) 81 mg PO DAILY [facility] Last Admin: 12/27/19 09:35 Dose: 81 mg Documented by: Atorvastatin Calcium (Atorvastatin Calcium 40 Mg Tab) 40 mg PO DAILY [facility] Last Admin: 12/27/19 09:36 Dose: 40 mg Documented by: Cefdinir (Cefdinir 300 Mg Cap) 300 mg PO BID [facility] Stop: 01/01/20 21:01 Enoxaparin Sodium (Enoxaparin Sodium 40 Mg/0.4 Ml Syringe) 40 mg SC 2100 [facility] Last Admin: 12/26/19 19:55 Dose: 40 mg Documented by: Furosemide (Furosemide 40 Mg/4 Ml Vial) 40 mg SLOW IVP NOW [facility] Stop: 12/27/19 16:00 Furosemide (Furosemide 40 Mg/4 Ml Vial) 40 mg SLOW IVP 0600,1400 [facility] Hydralazine HCl (Hydralazine 10 Mg Tab) 10 mg PO Q8HR [facility] Milrinone Lactate/Dextrose 20 (mg/ Device) 100 mls @ 9.359 mls/hr IV INF [facility]; Protocol Ivabradine (Ivabradine 5 Mg Tab) 5 mg PO BID [facility] Last Admin: 12/27/19 09:38 Dose: 5 mg Documented by: Loratadine (Loratadine 10 Mg Tab) 10 mg PO DAILYPRN PRN PRN Reason: .ITCHING Melatonin (Melatonin 3 Mg Tab) 3 mg PO HS PRN PRN Reason: Insomnia Last Admin: 12/24/19 22:11 Dose: 3 mg Documented by: Metoprolol Succinate (Metoprolol Succinate Xl 25 Mg Tab) 25 mg PO Q12HR [facility] Mometasone Furoate/Formoterol Fumar (Mometasone 200 Mcg/Formoterol 5 Mcg 120 Puff Inhaler) 2 puff INH BID-RT [facility] Last Admin: 12/27/19 07:31 Dose: Not Given Documented by: Potassium Chloride (Potassium Chloride 20 Meq Tab) 20 meq PO BID DORIAN Prednisone (Prednisone 20 Mg Tab) 40 mg PO QAM-WM [facility] Last Admin: 12/27/19 09:35 Dose: 40 mg Documented by: Sodium Chloride (Flush - Normal Saline 10 Ml Syringe) 10 ml IVF PRN PRN PRN Reason: Saline Flush Tamsulosin HCl (Tamsulosin Hcl 0.4 Mg Cap) 0.4 mg PO DAILY [facility] Last Admin: 12/27/19 09:38 Dose: 0.4 mg Documented by: Vital Signs & Weight: Vital Signs Temp Pulse Resp BP Pulse Ox 12/27/19 11:43 97.3 F L 79 25 H 120/59 L 93 L 12/27/19 10:43 89 18 94 L 12/27/19 07:36 95 12/27/19 07:29 75 18 95 12/27/19 07:24 97.5 F L 74 20 141/82 H 95 12/27/19 03:10 98.1 F 91 18 143/79 H 94 L Admit Weight 185 lb 3.013 oz Weight 182 lb 6.4 oz I/O: I/O 12/26/19 12/27/19 12/28/19 06:59 06:59 06:59 Intake Total 1095 720 Output Total 1875 1700 Balance -780 -980 - Physical Exam General: alert & oriented x3, speech clear HEENT: mucus membranes moist, normocephaly Neck: supple neck, midline trachea, JVD/HJR Cardiology: regular rate and rhythm, PMI nondisplaced Lungs: no wheezes, no rhonchi, bibasilar rales Neurology: cranial nerve 2-12 intact, grossly intact, no lateralizing findings Abdomen: unremarkable, active bowel sounds, no pulsations/bruits. negative: HJR negative Extremities: dry, strong pulses, + edema B - Labs Result Diagrams: 12/27/19 03:28 12/27/19 03:28 - EKG Interpretation EKG Method: Telemetry EKG shows: Sinus rhythm - Assessment/Plan Assessment/Plan: 1. Acute congestive heart failure - new onset, felt to be aftermath of Vidaza(azacitidine). - LVEF ~15% - Per Dr Shelley - GDMT - will require Life[facility] at [place]. Consider ICD if LVEF <35% in 3 months despite GDMT. 2. Hx CAD 3. HTN 4. Advanced pulmonary disease - CT showed fibrosis - per pulmonology 5. CKD 6. Focal atrial tachycardia -paroxysmal 7. Chronic anemia Now on milrinone gtt. There has been a noticable increase in PVC burden and frequency of paroxysmal PAT since yesterday evening. He remains asymptomatic. Would likely benefit from increasing/resuming betablocker therapy as BP permits. Have discussed with Dr Shelley. At this point I don't see antiarrhythmic medications being necessary unless PAT persists, as persisting tachycardia would work against optimizing his heart failure.
[2019-12-27] MEDS: hydrALAZINE 10 MG TAB PO SCH ×2 (14:02→20:50)
[2019-12-27 14:57] LABS: Actual Bicarbonate (HCO3a) 19.2 mEq/L (22-28); Base Excess (BEa) -4.4 mEq/L (-2.0 to +3.0); CO2 Tension 30.1 mmHg (35.0-45.0); Calcium, Ionized (arterial) 1.18 mmol/L (1.12-1.30); Carboxyhemoglobin (COHb) 0.5 gm% (0.0-3.0); Hemoglobin (Hb) 10.1 g/dL (14.0-18.0); Potassium - ABG Lab 3.98 mmol/L (3.70-5.30); pH, Arterial 7.42 (7.35-7.45)
[2019-12-27 15:09] LABS: ALV-art Gradient 113.715 mmHg (0-20); O2 Tension (PaO2), arterial 48.3 mmHg (> 70.0); Puncture Site RRA
--- NOTE | 2019-12-27 15:21 | PDOC.HOSPP ---
- Subjective Encounter Date: 12/27/19 Subjective: Patient was seen and evaluated today. This unfortunate 74-year-old with severe congestive heart failure admitted to the hospital for worsening shortness of breath. He is being treated for acute congestive heart failure. We appreciate muck boss input. They have made a lot of changes to his medications. Patient here in the last hour so started having more increased work of breathing and he is going to be moved to stepdown unit for closer monitoring. His prognos is is guarded. - Objective Vital Signs & Weight: Vital Signs (12 hours) Temp Pulse Resp BP Pulse Ox 12/27/19 14:46 79 30 H 90 L 12/27/19 11:43 97.3 F L 79 25 H 120/59 L 93 L 12/27/19 10:43 89 18 94 L 12/27/19 07:36 95 12/27/19 07:29 75 18 95 12/27/19 07:24 97.5 F L 74 20 141/82 H 95 Weight Admit Weight 185 lb 3.013 oz Weight 182 lb 6.4 oz Most Recent Monitor Data Heart Rate from ECG 95 NIBP 140/91 NIBP BP-Mean 107 Respiration from ECG 36 SpO2 96 I&O: 12/26/19 12/27/19 12/28/19 06:59 06:59 06:59 Intake Total 1095 720 Output Total 1875 1700 Balance -780 -980 Result Diagrams: 12/27/19 03:28 12/27/19 03:28 Radiology Reviewed by me: Yes EKG Reviewed by me: Yes Hospitalist ROS - Review of Systems Constitutional: reports: fever, chills Respiratory: reports: cough, shortness of breath, SOB with excertion Cardiovascular: reports: palpitations, paroxysmal noc. dyspnea Gastrointestinal: reports: nausea - Medication Medications: Active Medications Generic Name Dose Route Start Last Admin Trade Name Freq PRN Reason Stop Dose Admin Acetaminophen 1,000 mg 12/25/19 09:00 12/27/19 09:36 Acetaminophen 500 Mg Tab PO 1,000 mg DAILY DORIAN Administration Albuterol/Ipratropium 3 ml 12/26/19 15:00 12/27/19 14:46 Ipratropium/Albuterol Sulfate 3 Ml Neb NEB 3 ml [id number] DORIAN Administration Aspirin 81 mg 12/25/19 09:00 12/27/19 09:35 Aspirin 81 Mg Enteric Coated Tablet PO 81 mg DAILY DORIAN Administration Atorvastatin Calcium 40 mg 12/25/19 09:00 12/27/19 09:36 Atorvastatin Calcium 40 Mg Tab PO 40 mg DAILY DORIAN Administration Enoxaparin Sodium 40 mg 12/23/19 21:00 12/26/19 19:55 Enoxaparin Sodium 40 Mg/0.4 Ml Syringe SC 40 mg 2100 DORIAN Administration Furosemide 40 mg 12/27/19 13:30 12/27/19 14:02 Furosemide 40 Mg/4 Ml Vial SLOW IVP 12/27/19 16:00 40 mg NOW DORIAN Administration Hydralazine HCl 10 mg 12/27/19 14:00 12/27/19 14:02 Hydralazine 10 Mg Tab PO 10 mg Q8HR DORIAN Administration Ivabradine 5 mg 12/25/19 21:00 12/27/19 09:38 Ivabradine 5 Mg Tab PO 5 mg BID DORIAN Administration Melatonin 3 mg 12/24/19 21:48 12/24/19 22:11 Melatonin 3 Mg Tab PO 3 mg HS PRN Administration Insomnia Mometasone Furoate/Formoterol Fumar 2 puff 12/26/19 18:30 12/27/19 07:31 Mometasone 200 Mcg/Formoterol 5 Mcg 120 Puff Inhaler INH Not Given BID-RT DOIRAN Prednisone 40 mg 12/27/19 08:00 12/27/19 09:35 Prednisone 20 Mg Tab PO 40 mg QAM-WM DORIAN Administration Tamsulosin HCl 0.4 mg 12/25/19 09:00 12/27/19 09:38 Tamsulosin Hcl 0.4 Mg Cap PO 0.4 mg DAILY DORIAN Administration - Exam General Appearance: awake alert, ill appearing General - other findings: INCREASED RESP DISTRESS Eye: PERRL, anicteric sclera, scleral icterus ENT: normocephalic atraumatic, no oropharyngeal lesions Neck: supple, symmetric, no lymphadenopathy, JVD Heart: RRR, normal peripheral pulses Respiratory: tachypneic Gastrointestinal: soft, non-tender, non-distended, normal bowel sounds Extremities: no cyanosis, no clubbing, 2+ LE edema Psychiatric: normal affect, normal behavior, A&O x 3, oriented to person Hosp A/P (1) Acute and chronic respiratory failure with hypoxia Code(s): J96.21 - ACUTE AND CHRONIC RESPIRATORY FAILURE WITH HYPOXIA Status: Acute Plan: Likely secondary to acute on chronic heart failure exacerbations. Right now he seems to be struggling with his breathing. He is tachypneic. We will move him down to [facility]. (2) Acute exacerbation of CHF (congestive heart failure) Code(s): I50.9 - HEART FAILURE, UNSPECIFIED Status: Acute Qualifiers: Heart failure type: combined systolic and diastolic Qualified Code(s): I50.43 - Acute on chronic combined systolic (congestive) and diastolic (congestive) heart failure Plan: Continue diuretics. (3) COPD (chronic obstructive pulmonary disease) Status: Chronic Qualifiers: COPD type: chronic bronchitis Chronic bronchitis type: mucopurulent Qualified Code(s): J41.1 - Mucopurulent chronic bronchitis (4) PNA (pneumonia) Code(s): J18.9 - PNEUMONIA, UNSPECIFIED ORGANISM Status: Suspected Qualifiers: Pneumonia type: due to unspecified organism Laterality: bilateral - Plan #1. Acute respiratory failure with hypoxia. We will continue O2 supplementation. 12/27/2019. Patient seems to be struggling at this time. We will go ahead and move him down to [facility] for closer monitoring. He may ultimately benefit from high flow nasal cannula. 2.. Acute CHF exacerbation likely systolic dysfunction. Echo shows an EF around 15%. I agree with diuresis. Continue guideline directed medical therapy. 12/26/2019. Continue diuresis as above. 12/27/2019. Continue diuresis as above. 3. Ischemic cardiomyopathy. His EF was 15 to 20%. We appreciate cardiology's recommendations. He apparently had ischemic work-up in the last few weeks with his muck boss. 4. Hypertensive heart and chronic kidney disease. #5. Suspected pneumonia. I will continue empiric antibiotics for now. #6. History of myelodysplastic syndrome. He is on Vidaza.
[2019-12-27] MEDS ORDERED: ALPRAZolam 0.25 MG TAB PO SCH (20:15)
[2019-12-27] MEDS: Cefdinir 300 MG CAP PO SCH (20:48)
[2019-12-27] MEDS: Enoxaparin Sodium 40 MG/0.4 ML SYRINGE SC SCH (20:48)
[2019-12-27] MEDS: Potassium Chloride 20 MEQ TAB PO SCH (20:49)
[2019-12-28 01:35] LABS: Actual Bicarbonate (HCO3a) 21.4 mEq/L (22-28); Base Excess (BEa) -2.4 mEq/L (-2.0 to +3.0); CO2 Tension 32.4 mmHg (35.0-45.0); Calcium, Ionized (arterial) 1.21 mmol/L (1.12-1.30); Carboxyhemoglobin (COHb) 0.6 gm% (0.0-3.0); Hemoglobin (Hb) 8.2 g/dL (14.0-18.0); O2 Tension (PaO2), arterial 72.7 mmHg (> 70.0); Potassium - ABG Lab 4.07 mmol/L (3.70-5.30); pH, Arterial 7.44 (7.35-7.45)
[2019-12-28 01:59] LABS: Hemoglobin 8.4 g/dL (14.0-18.0); Mean Corpuscular HGB CONC 34.4 g/dL (32.0-36.0); Mean Corpuscular Hemoglobin 32.8 pg (27.0-31.0); Mean Corpuscular Volume 95.4 fL (78.0-98.0); Mean Platelet Volume 10.5 fL (7.4-10.4); Platelet Count 147 thou/uL (130-400); RBC Distribution Width 16.5 % (11.5-14.5); Red Blood Cell (RBC) Count 2.57 mill/uL (4.70-6.10); White Blood Cell (WBC) Count 16.2 thou/uL (4.8-10.8)
[2019-12-28 02:03] LABS: Lactic Acid 1.9 mmol/L (0.5-2.2)
[2019-12-28 02:06] LABS: Anion Gap 15 mmol/L (10-20); BUN (Urea Nitrogen) 58 mg/dL (8.4-25.7); Calc. Creatinine Clearance 34 mL/min (70-130); Carbon Dioxide 20 mmol/L (23-31); Chloride 100 mmol/L (98-107); Estimated GFR-MDRD 29; Glucose 149 mg/dL (83-110); Potassium 3.9 mmol/L (3.5-5.1); Sodium 131 mmol/L (136-145)
[2019-12-28 02:16] LABS: Band 6 % (5-11); Hypochromia SLIGHT = 6-15 cells (100X) (0-5/hpf); Lymphocytes 7 % (21-51); MDiff Complete? YES; Monocytes 16 % (0-10); Neutrophil 71 % (42-75); Platelet Morphology Comment Appears Adequate
[2019-12-28 02:32] LABS: Puncture Site R BRACHIAL
[2019-12-28] MEDS ORDERED: Furosemide 40 MG/4 ML VIAL SLOW IVP SCH ×2 (03:00→09:00)
[2019-12-28 04:22] LABS: Anion Gap 15 mmol/L (10-20); BUN (Urea Nitrogen) 57 mg/dL (8.4-25.7); Calc. Creatinine Clearance 36 mL/min (70-130); Carbon Dioxide 20 mmol/L (23-31); Chloride 102 mmol/L (98-107); Estimated GFR-MDRD 31; Glucose 157 mg/dL (83-110); Magnesium 2.5 mg/dL (1.6-2.6); Sodium 133 mmol/L (136-145)
[2019-12-28] MEDS: Milrinone Lactate/D5W 20 MG in Premix Bag 1 BAG IV SCH ×2 (05:07→16:27)
[2019-12-28] MEDS: hydrALAZINE 10 MG TAB PO SCH ×2 (06:39→06:44)
[2019-12-28] MEDS: Furosemide 40 MG/4 ML VIAL SLOW IVP SCH ×2 (06:39→13:26)
[2019-12-28] MEDS: Mometasone 200 MCG/Formoterol 5 MCG 120 PUFF INHALER INH SCH ×2 (07:48→18:43)
--- NOTE | 2019-12-28 08:02 | RAD ---
PORTABLE CHEST: Date: 12/28/2019 HISTORY: Shortness of breath. COMPARISON: 12/25/2019. FINDINGS: Interstitial and alveolar infiltrates are seen in both mid and lower lung ramsey, unchanged from the recent exam of 12/25/2019. There is cardiomegaly with postop sternotomy change. There is a PICC line in place via the left upper extremity with tip overlying the right atrium. IMPRESSION: Bilateral infiltrates do not appear significantly changed. POS: AGW
--- NOTE | 2019-12-28 08:41 | RAD ---
SUPINE ABDOMEN: Date: 12/28/2019 HISTORY: Abdominal pain. FINDINGS: There are gas-filled mildly dilated loops of small and large bowel. There is gas seen at the level of the rectum. Findings suggest diffuse ileus. No mass effect or abnormal calcification. IMPRESSION: Diffuse gaseous distention of small and large bowel. POS: AGW
--- NOTE | 2019-12-28 09:01 | PRG ---
DATE OF SERVICE: 12/28/2019 SUBJECTIVE: Julio Miller was transferred last night to the ICU after he developed worsening respiratory distress, even though his saturations were okay. OBJECTIVE: VITAL SIGNS: His pulse was 99, respirations , saturations are 94 on 4 L, blood pressure . His I's and O's have been consistently negative. CHEST: Reveal extensive crackles. CARDIAC: Normal S1 and S2. No gallops. ABDOMEN: Soft. LABORATORY DATA: Repeat blood gas; PO2 was 72, pCO2 was 32, pH 7.44. X-ray shows extensive bilateral infiltrates. Creatinine is 2, BUN 57. BNP is 4000. IMPRESSION AND PLAN: Cardiomyopathy, baseline underlying pulmonary fibrosis, renal failure, encephalopathy, ileus. The prognosis is grave. I do not see him getting much better. He had been seen by multiple physicians. At this stage, pulmonary vides, he is on p.o. medication, he is unable to tolerated it, he may very well need to get an NG tube. Discuss with family ongoing code status. One-half hour of critical care time. Job ID: [id number]
--- NOTE | 2019-12-28 09:31 | PDOC.EP ---
- Subjective Date: 12/28/19 Time: 09:29 Interval History: transfer to ICU for respiratory distress. cannot tolerate Bi level, attempting high-flow this morning. - Review of Systems Constitutional: reports: weakness. denies: chills, fever, sweats Respiratory: reports: cough, shortness of breath, sputum, wheezing. denies: hemoptysis, pleuritic pain Cardiology: denies: chest pain, heart racing, light headedness, palpitations, passing out Gastrointestinal: denies: abdominal pain, constipation, nausea, vomitting Musculoskeletal: denies: unstable gait, falls, neck pain - Objective Allergies/Adverse Reactions: Allergies Allergy/AdvReac Type Severity Reaction Status Date / Time No Known Allergies Allergy Verified 12/23/19 20:47 Current Medications Acetaminophen (Acetaminophen 500 Mg Tab) 1,000 mg PO DAILY [facility] Last Admin: 12/27/19 09:36 Dose: 1,000 mg Documented by: Albuterol/Ipratropium (Ipratropium/Albuterol Sulfate 3 Ml Neb) 3 ml NEB [id number] SCH Last Admin: 12/28/19 07:50 Dose: 3 ml Documented by: Aspirin (Aspirin 81 Mg Enteric Coated Tablet) 81 mg PO DAILY [facility] Last Admin: 12/27/19 09:35 Dose: 81 mg Documented by: Atorvastatin Calcium (Atorvastatin Calcium 40 Mg Tab) 40 mg PO DAILY [facility] Last Admin: 12/27/19 09:36 Dose: 40 mg Documented by: Cefdinir (Cefdinir 300 Mg Cap) 300 mg PO BID [facility] Stop: 01/01/20 21:01 Last Admin: 12/27/19 20:48 Dose: 300 mg Documented by: Enoxaparin Sodium (Enoxaparin Sodium 40 Mg/0.4 Ml Syringe) 40 mg SC 2100 [facility] Last Admin: 12/27/19 20:48 Dose: 40 mg Documented by: Furosemide (Furosemide 40 Mg/4 Ml Vial) 40 mg SLOW IVP 0600,1400 [facility] Last Admin: 12/28/19 06:39 Dose: 40 mg Documented by: Hydralazine HCl (Hydralazine 25 Mg Tab) 25 mg PO Q8HR [facility] Milrinone Lactate/Dextrose 20 (mg/ Device) 100 mls @ 9.359 mls/hr IV INF [facility]; Protocol Last Admin: 12/28/19 05:07 Dose: 100 mls Documented by: Isosorbide Dinitrate (Isosorbide Dinitrate 5 Mg Tab) 10 mg PO Q12HR [facility] Ivabradine (Ivabradine 5 Mg Tab) 5 mg PO BID [facility] Last Admin: 12/27/19 22:03 Dose: 5 mg Documented by: Loratadine (Loratadine 10 Mg Tab) 10 mg PO DAILYPRN PRN PRN Reason: .ITCHING Melatonin (Melatonin 3 Mg Tab) 3 mg PO HS PRN PRN Reason: Insomnia Last Admin: 12/24/19 22:11 Dose: 3 mg Documented by: Metoprolol Succinate (Metoprolol Succinate Xl 25 Mg Tab) 25 mg PO Q12HR [facility] Last Admin: 12/27/19 20:49 Dose: 25 mg Documented by: Mometasone Furoate/Formoterol Fumar (Mometasone 200 Mcg/Formoterol 5 Mcg 120 Puff Inhaler) 2 puff INH BID-RT [facility] Last Admin: 12/28/19 07:48 Dose: 2 puff Documented by: Potassium Chloride (Potassium Chloride 20 Meq Tab) 20 meq PO BID [facility] Last Admin: 12/27/19 20:49 Dose: 20 meq Documented by: Prednisone (Prednisone 20 Mg Tab) 40 mg PO QAM-WM [facility] Last Admin: 12/27/19 09:35 Dose: 40 mg Documented by: Sodium Chloride (Flush - Normal Saline 10 Ml Syringe) 10 ml IVF PRN PRN PRN Reason: Saline Flush Tamsulosin HCl (Tamsulosin Hcl 0.4 Mg Cap) 0.4 mg PO DAILY [facility] Last Admin: 12/27/19 09:38 Dose: 0.4 mg Documented by: Vital Signs & Weight: Vital Signs Temp Pulse Resp Pulse Ox 12/28/19 08:57 95 12/28/19 07:51 94 L 12/28/19 07:50 99 30 H 12/28/19 07:35 95 12/28/19 06:44 82 12/28/19 04:00 97.6 F 12/28/19 03:24 97 12/28/19 02:29 82 40 H 96 12/28/19 02:15 97.7 F 12/28/19 01:52 94 L 12/28/19 01:35 38 H 93 L 12/27/19 23:22 19 Admit Weight 185 lb 3.013 oz Weight 175 lb 14.862 oz I/O: I/O 12/27/19 12/28/19 12/29/19 06:59 06:59 06:59 Intake Total 720 733 Output Total 5826 7889 420 Balance -980 -6718 -999 - Physical Exam General: alert & oriented x3, appears well, speech clear HEENT: mucus membranes moist, normocephaly Neck: supple neck, no lymphadenopathy, JVD/HJR ( significant) Cardiology: no murmur, PMI nondisplaced, tachycardia Lungs: wheezes, bibasilar rales, other ( labored) Neurology: cranial nerve 2-12 intact, grossly intact, no lateralizing findings Abdomen: unremarkable, active bowel sounds, no pulsations/bruits - Labs Result Diagrams: 12/28/19 01:37 12/28/19 03:21 - EKG Interpretation EKG Method: Telemetry EKG shows: Sinus rhythm - Assessment/Plan Assessment/Plan: 1. Acute congestive heart failure - new onset, felt to be aftermath of Vidaza(azacitidine). - LVEF ~15% - Per Dr Shelley - GDMT - will require Lifevest at DC. Consider ICD if LVEF <35% in 3 months despite GDMT. 2. Hx CAD 3. HTN 4. Advanced pulmonary disease - CT showed fibrosis - per pulmonology 5. CKD 6. Focal atrial tachycardia - paroxysmal - likely right atrial in origin 7. Chronic anemia 8. ventricular tachycardia, nonsustained transferred to ICU due to respiratory distress. on telemetry he is seen to have frequent episodes of focal atrial tachycardia, likely right atrial in origin with single morphology of P waves ( but distinctly different than sinus rhythm P-waves) that are upright in the inferior leads and V1. some episodes are now sustaining for 10-15 minutes before terminating and the burden continues to increase. Atrial tachycardia ventricular rates are approximately 120 beats per minute. His PVC burden is also significantly increasing, occasionally with couplets and bigeminy, and he is having nonsustained ventricular tachycardia runs as well. he is on beta-ronnell therapy, I would avoid amiodarone therapy unless absolutely necessary given his advanced pulmonary disease/fibrosis.
[2019-12-28] MEDS: Ivabradine 5 MG TAB PO SCH ×2 (09:50→22:25)
[2019-12-28] MEDS: Aspirin 81 mg Enteric Coated Tablet PO SCH (09:53)
[2019-12-28] MEDS: Atorvastatin Calcium 40 MG TAB PO SCH (09:53)
[2019-12-28] MEDS: Acetaminophen 500 MG TAB PO SCH (09:53)
[2019-12-28] MEDS: Cefdinir 300 MG CAP PO SCH ×2 (09:53→22:24)
[2019-12-28] MEDS: predniSONE 20 MG TAB PO SCH (09:54)
[2019-12-28] MEDS: Tamsulosin HCl 0.4 MG CAP PO SCH (09:54)
[2019-12-28] MEDS: Potassium Chloride 20 MEQ TAB PO SCH ×2 (09:55→22:24)
[2019-12-28] MEDS: Isosorbide Dinitrate 5 MG TAB PO SCH ×2 (10:00→22:24)
--- NOTE | 2019-12-28 10:11 | PRG ---
DATE OF SERVICE: 12/28/2019 SUBJECTIVE: Mr. Miller did not have a good evening. He became more short of breath last night. He was quite tachypneic. This despite net negative in terms of urine output. Thus, he was moved into the ICU. It was reported that he was placed on BiPAP, but this morning that he is not. He appears to be very tired and tachypneic. He did not tolerated the BiPAP mask; thus, he refused to wear it. REVIEW OF SYSTEMS: GENERAL: He is fatigued and some cough. HEENT: There is no change in hearing, swallowing, or vision. PULMONARY: He is short of breath and coughing. CARDIAC: He does not report any chest pains or palpitations or syncope. GI: He does have nausea, vomiting, or diarrhea. However, he does not feel like eating. : He has a Alexander catheter in place. MUSCULOSKELETAL: He is not really complaining of musculoskeletal pains. INTEGUMENT: There is no report of new skin breakdown. NEUROLOGIC: There are no focal deficits or weakness. MEDICATIONS: Current Medications: 1. Aspirin 81 mg daily. 2. Atorvastatin 40 mg daily. 3. Cefdinir 300 mg b.i.d. 4. Enoxaparin 400 mg at bedtime. 5. Furosemide 40 mg IV b.i.d. 6. Hydralazine 10 mg q.8 hours. 7. Ivabradine 5 mg b.i.d. 8. Loratadine 10 mg daily as needed. 9. Melatonin 3 mg at bedtime. 10. Toprol XL 25 mg q.12 hours. 11. Milrinone currently at 0.37 mcg/kg per minute. 12. Dulera 2 puffs b.i.d. 13. K-Dur 20 mEq p.o. b.i.d. 14. Prednisone 40 mg daily. 15. Flomax 0.4 mg daily. PHYSICAL EXAMINATION: TELEMETRY: Reviewed. In general, he is in sinus rhythm. However, he has occasional runs of multifocal atrial tachycardia. Sometimes, it looks like short runs of AFlutter. Right now, he is in sinus rhythm, heart rate of 80. VITAL SIGNS: Heart rate 80, blood pressure at 154/85. His respiration rate is between 30 to 40. Currently saturation is about 97 to 100% on 4 L. GENERAL: He is very much weaker today than yesterday, appears to be short of breath and struggling to breathe a bit. HEENT: Show EOMI. Oropharynx is benign. NECK: His JVP is decreased from yesterday. It is probably around 10 cm. PULMONARY: His lungs have bilateral wheeze. He also has Velcro like crackles, worse on the left than the right. CARDIAC: He has regular rate and rhythm with normal S1, S2. There is 2/6 holosystolic murmur at the left upper sternal border. ABDOMEN: Soft, nontender. Positive bowel sounds. EXTREMITIES: Lower extremities without any edema. Palpable dorsalis pedis pulses. LABORATORY DATA: His chemistry shows sodium 133 - improvement, potassium 4 - is improvement. Chloride is 102, his bicarb level is 20. His BUN is 57, there is a slight decrease from 58. His creatinine is 2.12, slight improvement from 2.25. His BNP is 4071, that is a decrease from 4366. His 24-hour I and O's are 733 in and 2535 out, so he is -1802. His noncontrast CT scan was reviewed. It shows diffuse peripheral dominant inflammation, scarring, fibrosis. There are also ground-glass opacities. This resembled pneumonitis and fibrosis. It is not a typical pattern for heart failure. chest x-ray was reviewed this morning. Again, it shows bilateral infiltrates, reticular nodular pattern, consistent with severe pneumonitis. ASSESSMENT: A 74-year-old gentleman, currently is suffering from worsening of pneumonitis. The CT scan findings, his chest x-ray findings, and physical exam of wheezing and Velcro crackles, all point to this premise. 24 hour fluid in/out at net negative at 1.8 L and slight improvement in creatinine suggest this is not a cardiac process. It is not caused by worsening pulmonary edema, but rather the respiratory distress needing higher oxygen level, right now he is saturating 90% on 4 L, is caused by worsening pneumonitis. This in turn triggering multifocal atrial tachycardia, which happens occasionally, and worsening cardiac function. Unless pulmonary condition can be improved, his MAT will not go away or perhaps worsen. However, his MAT is currently under control. He does have acute heart failure, likely due to chemotherapy. He is now on maximum possible dose of milrinone for his condition. At this dose, his kidney function has stabilized, perhaps improved slightly. He is maintaining a net negative output greater than 1.5 L per day. There is more than sufficient. He is a bit hypertensive. This is due to his struggling to breathe. I will adjust his medications to help with that. The underlying cause most likely is an adverse reaction to Vidaza which is azacitidine, that is the generic name. This medication has known to cause pneumonitis and acute heart failure. Unfortunately, the patient has both. At this point, we may be at the limit of what we can do at this institution. His prognosis is poor. Please see the following for my recommendations. RECOMMENDATIONS: 1. Continue milrinone 0.375 mcg/kg/minute for now. Do not increase. 2. Increase hydralazine to 25 mg p.o. q.8 hours. 3. Please add isosorbide dinitrate 10 mg q.12 hours. 4. Please hold both of those medications if systolic blood pressure drops below 100. 5. With worsening pulmonary condition, we may need to seek for higher level of care. He may need [facility] ECMO to survive the near future. His heart is too weak for [facility] ECMO. He will likely need to be intubated sometime in the near future. It would take some time for the inflammation to resolve itself, but that would take time. For now, he will likely need continuous high flow oxygen. It has been a pleasure taking care of Mr. Miller. If any questions, please give me a call. The critical care time is about 40 minutes. This included personnel performing history and physical, reviewing CT scans and x-ray, coordinating with other services, coordinating with other physicians, and also meeting with family members. Job ID: [id number] [facility]
[2019-12-28 11:21] VITALS: BMI 25.2
[2019-12-28] MEDS: hydrALAZINE 25 MG TAB PO SCH ×2 (13:26→22:24)
[2019-12-28] MEDS: Morphine 2 MG/ML VIAL SLOW IVP PRN ×2 (13:28→18:04)
--- NOTE | 2019-12-28 15:15 | PDOC.HOSPP ---
- Subjective Encounter Date: 12/28/19 Encounter Time: 15:13 Subjective: Patient was seen this morning. He was transferred earlier to ICU due to ongoing respiratory distress. I had a very long conversation with the value analysis coordinator who recommended transfer to tertiary care center. He was kind enough to speak to value analysis coordinator and geological sample tester at [facility] in [facility]. However after discussing with the patient's family they declined such transfer. They are beginning to consider comfort care. I have asked Palliative care to come talk to the patient and the family. He will likely be made comfort care/hospice after family meeting. His prognosis appears to be guarded at best. - Objective Vital Signs & Weight: Vital Signs (12 hours) Temp Pulse Resp BP Pulse Ox 12/28/19 14:49 82 27 H 12/28/19 13:26 84 137/88 12/28/19 12:00 98.5 F 12/28/19 10:26 84 30 H 12/28/19 08:57 95 12/28/19 08:00 99 F 12/28/19 07:51 94 L 12/28/19 07:50 99 30 H 12/28/19 07:35 95 12/28/19 06:44 82 12/28/19 04:00 97.6 F 12/28/19 03:24 97 Weight Admit Weight 185 lb 3.013 oz Weight 175 lb 14.862 oz Most Recent Monitor Data Heart Rate from ECG 76 NIBP 112/58 NIBP BP-Mean 76 Respiration from ECG 21 SpO2 92 I&O: 12/27/19 12/28/19 12/29/19 06:59 06:59 06:59 Intake Total 720 733 480 Output Total 1159 4491 6320 Balance -980 -1802 -1550 Result Diagrams: 12/28/19 01:37 12/28/19 03:21 Radiology Reviewed by me: Yes EKG Reviewed by me: Yes Hospitalist ROS - Review of Systems ROS unobtainable: due to mental status Constitutional: reports: weakness, malaise Respiratory: reports: cough, shortness of breath, SOB with excertion Cardiovascular: reports: chest pain Gastrointestinal: reports: nausea, vomiting Neurological: reports: weakness - Medication Medications: Active Medications Generic Name Dose Route Start Last Admin Trade Name Freq PRN Reason Stop Dose Admin Acetaminophen 1,000 mg 12/25/19 09:00 12/28/19 09:53 Acetaminophen 500 Mg Tab PO 1,000 mg DAILY DORIAN Administration Albuterol/Ipratropium 3 ml 12/26/19 15:00 12/28/19 14:49 Ipratropium/Albuterol Sulfate 3 Ml Neb NEB 3 ml [id number] DORIAN Administration Aspirin 81 mg 12/25/19 09:00 12/28/19 09:53 Aspirin 81 Mg Enteric Coated Tablet PO 81 mg DAILY DORIAN Administration Atorvastatin Calcium 40 mg 12/25/19 09:00 12/28/19 09:53 Atorvastatin Calcium 40 Mg Tab PO 40 mg DAILY DORIAN Administration Cefdinir 300 mg 12/27/19 21:00 12/28/19 09:53 Cefdinir 300 Mg Cap PO 01/01/20 21:01 300 mg BID DORIAN Administration Enoxaparin Sodium 40 mg 12/23/19 21:00 12/27/19 20:48 Enoxaparin Sodium 40 Mg/0.4 Ml Syringe SC 40 mg 2100 DORIAN Administration Furosemide 40 mg 12/28/19 06:00 12/28/19 13:26 Furosemide 40 Mg/4 Ml Vial SLOW IVP 40 mg 0600,1400 DORIAN Administration Hydralazine HCl 25 mg 12/28/19 14:00 12/28/19 13:26 Hydralazine 25 Mg Tab PO 25 mg Q8HR DORIAN Administration Milrinone Lactate/Dextrose 20 100 mls @ 9.359 mls/hr 12/27/19 09:30 12/28/19 05:07 mg/ Device IV 100 mls INF DORIAN Administration Protocol 0.375 MCG/KG/MIN Isosorbide Dinitrate 10 mg 12/28/19 09:00 12/28/19 10:00 Isosorbide Dinitrate 5 Mg Tab PO 10 mg Q12HR DORIAN Administration Ivabradine 5 mg 12/25/19 21:00 12/28/19 09:50 Ivabradine 5 Mg Tab PO 5 mg BID DORIAN Administration Melatonin 3 mg 12/24/19 21:48 12/24/19 22:11 Melatonin 3 Mg Tab PO 3 mg HS PRN Administration Insomnia Metoprolol Succinate 25 mg 12/27/19 21:00 12/28/19 09:56 Metoprolol Succinate Xl 25 Mg Tab PO 25 mg Q12HR DORIAN Administration Mometasone Furoate/Formoterol Fumar 2 puff 11/03/20 18:30 12/28/19 07:48 Mometasone 200 Mcg/Formoterol 5 Mcg 120 Puff Inhaler INH 2 puff BID-RT DORIAN Administration Morphine Sulfate 2 mg 12/28/19 13:00 12/28/19 13:28 Morphine 2 Mg/Ml Vial SLOW IVP 2 mg Q4H PRN Administration Pain Potassium Chloride 20 meq 12/27/19 21:00 12/28/19 09:55 Potassium Chloride 20 Meq Tab PO 20 meq BID DORIAN Administration Prednisone 40 mg 12/27/19 08:00 12/28/19 09:54 Prednisone 20 Mg Tab PO 40 mg QAM-WM DORIAN Administration Tamsulosin HCl 0.4 mg 12/25/19 09:00 12/28/19 09:54 Tamsulosin Hcl 0.4 Mg Cap PO 0.4 mg DAILY DORIAN Administration - Exam General Appearance: ill appearing Eye: PERRL ENT: normocephalic atraumatic, no oropharyngeal lesions, moist mucosa Neck: supple Heart: RRR Respiratory: CTAB, no wheezes, normal chest expansion Gastrointestinal: soft, non-tender, non-distended, normal bowel sounds, no palpable masses Extremities: no cyanosis, no clubbing, no edema Skin: normal turgor Neurological: cranial nerve grossly intact Musculoskeletal: normal tone, generalized weakness Psychiatric: not oriented, somnolent, lethargic Hosp A/P (1) Acute and chronic respiratory failure with hypoxia Code(s): J96.21 - ACUTE AND CHRONIC RESPIRATORY FAILURE WITH HYPOXIA Status: Acute (2) Acute exacerbation of CHF (congestive heart failure) Code(s): I50.9 - HEART FAILURE, UNSPECIFIED Status: Acute Qualifiers: Heart failure type: combined systolic and diastolic Qualified Code(s): I50.43 - Acute on chronic combined systolic (congestive) and diastolic (congestive) heart failure (3) COPD (chronic obstructive pulmonary disease) Status: Chronic Qualifiers: COPD type: chronic bronchitis Chronic bronchitis type: mucopurulent Qualified Code(s): J41.1 - Mucopurulent chronic bronchitis (4) PNA (pneumonia) Code(s): J18.9 - PNEUMONIA, UNSPECIFIED ORGANISM Status: Suspected Qualifiers: Pneumonia type: due to unspecified organism Laterality: bilateral - Plan #1. Acute respiratory failure with hypoxia. We will continue O2 supplementation. 12/27/2019. Patient seems to be struggling at this time. We will go ahead and move him down to IMCU for closer monitoring. He may ultimately benefit from high flow nasal cannula. 2.. Acute CHF exacerbation likely systolic dysfunction. Echo shows an EF around 15%. I agree with diuresis. Continue guideline directed medical therapy. 12/26/2019. Continue diuresis as above. 12/27/2019. Continue diuresis as above. 3. Ischemic cardiomyopathy. His EF was 15 to 20%. We appreciate cardiology's recommendations. He apparently had ischemic work-up in the last few weeks with his value analysis coordinator. 4. Hypertensive heart and chronic kidney disease. #5. Suspected pneumonia. I will continue empiric antibiotics for now. #6. History of myelodysplastic syndrome. He is on Vidaza. 12/28/2019. I discussed with the value analysis coordinator and we agreed to transfer him to higher level of care but family declined the transfer. They are now leaning towards comfort measures. I have asked palliative care to go visit with the family and they would likely transition him to hospice for comfort care.
[2019-12-28] MEDS ORDERED: DOBUTamine 500 mg/250 ml 500 MG in Premix Bag 1 BAG IVPB SCH (19:30)
[2019-12-28] MEDS: Enoxaparin Sodium 40 MG/0.4 ML SYRINGE SC SCH (22:25)
[2019-12-29] MEDS: Morphine 2 MG/ML VIAL SLOW IVP PRN (00:10)
[2019-12-29] MEDS: Milrinone Lactate/D5W 20 MG in Premix Bag 1 BAG IV SCH (03:02)
[2019-12-29] MEDS: Furosemide 40 MG/4 ML VIAL SLOW IVP SCH (06:05)
[2019-12-29] MEDS: hydrALAZINE 25 MG TAB PO SCH ×2 (06:05→13:11)
[2019-12-29 06:06] VITALS: BP 146/81
[2019-12-29] MEDS: Isosorbide Dinitrate 5 MG TAB PO SCH (08:09)
[2019-12-29] MEDS: predniSONE 20 MG TAB PO SCH (08:09)
[2019-12-29] MEDS: Potassium Chloride 20 MEQ TAB PO SCH (08:10)
[2019-12-29] MEDS: Aspirin 81 mg Enteric Coated Tablet PO SCH (08:10)
[2019-12-29] MEDS: Atorvastatin Calcium 40 MG TAB PO SCH (08:10)
[2019-12-29] MEDS: Acetaminophen 500 MG TAB PO SCH (08:10)
[2019-12-29] MEDS: Tamsulosin HCl 0.4 MG CAP PO SCH (08:10)
[2019-12-29] MEDS: Cefdinir 300 MG CAP PO SCH (08:10)
[2019-12-29] MEDS: Mometasone 200 MCG/Formoterol 5 MCG 120 PUFF INHALER INH SCH (08:54)
[2019-12-29 09:33] LABS: Hemoglobin 8.7 g/dL (14.0-18.0); Mean Corpuscular HGB CONC 32.9 g/dL (32.0-36.0); Mean Corpuscular Hemoglobin 31.7 pg (27.0-31.0); Mean Corpuscular Volume 96.2 fL (78.0-98.0); Mean Platelet Volume 10.3 fL (7.4-10.4); Platelet Count 136 thou/uL (130-400); RBC Distribution Width 17.6 % (11.5-14.5); Red Blood Cell (RBC) Count 2.75 mill/uL (4.70-6.10); White Blood Cell (WBC) Count 12.3 thou/uL (4.8-10.8)
[2019-12-29 09:39] LABS: Anion Gap 13 mmol/L (10-20); BUN (Urea Nitrogen) 55 mg/dL (8.4-25.7); Calc. Creatinine Clearance 33 mL/min (70-130); Calcium 9.4 mg/dL (7.8-10.44); Carbon Dioxide 24 mmol/L (23-31); Chloride 103 mmol/L (98-107); Estimated GFR-MDRD 31; Glucose 102 mg/dL (83-110); Magnesium 2.3 mg/dL (1.6-2.6); Potassium 4.4 mmol/L (3.5-5.1); Sodium 136 mmol/L (136-145)
[2019-12-29 10:17] LABS: Burr Cells SLIGHT = 2-5 cells (100X) (0-1/hpf); Elliptocytes SLIGHT = 2-5 cells (100X) (0-1/hpf); Eosinophils 1 % (0-10); Lymphocytes 14 % (21-51); MDiff Complete? YES; Metamyelocyte 1 % (0-0); Monocytes 10 % (0-10); Myelocyte 1 % (0-0); Neutrophil 73 % (42-75); Nucleated RBC 1 % (0); Platelet Morphology Comment Appears Adequate; Target Cells SLIGHT = 2-5 cells (100X) (0-1/hpf)
--- NOTE | 2019-12-29 11:02 | PRG ---
DATE OF SERVICE: 12/29/2019 SUBJECTIVE: Julio Miller is a 74-year-old gentleman, remains extremely weak in the MICU. OBJECTIVE: VITAL SIGNS: Temperature 96, saturations are 100% on 2 L, blood pressure 142/82 I's and O's are negative. CHEST: Bilateral crackles. CARDIAC: Normal S1, normal S2. No gallops. ABDOMEN: No masses. IMPRESSION: Multiorgan failure, respiratory failure secondary to congestive heart failure, possibly severe pneumonia, underlying what appears to be pulmonary fibrosis. PLAN: His prognosis is grave. Cardiology has been consulted. Start him on inotropes. Family is going to decide regarding the code status on him. He did not tolerate BiPAP. If his oxygen level decreases, we may try again high-flow. Job ID: [id number]
[2019-12-29] MEDS: Ivabradine 5 MG TAB PO SCH (11:09)
[2019-12-29 11:21] VITALS: TEMP 96.3
--- NOTE | 2019-12-29 13:43 | PRG ---
DATE OF SERVICE: 12/29/2019 SUBJECTIVE: Mr. Julio Miller had a variable day and night. He is very lethargic. He does not want to eat. He does not want to be touched. He was offered a chance to transfer to [facility] for higher level of care including potential of the Venous-Arterial (VA) ECMO if needed. However, apparently, the family decided against that. There is a chance that he will go on hospice today and Palliative Care consult has been requested. This morning, he is still lethargic. He does not want to participate in care very much. He does not want to eat. REVIEW OF SYSTEMS: GENERAL: Fatigued, lethargic. HEENT: There is no change in vision, hearing, or swallowing. PULMONARY: He has continued to be short of breath. CARDIAC: He does not complain of chest pains or palpitations. GI: He is not eating. : He has a Alexander catheter that is in place. MUSCULOSKELETAL: He does not want to be touched. He apparently has some generalized discomfort. INTEGUMENT: There is no report of new skin breakdown. NEUROLOGIC: There are no focal deficits or weakness; however, there is a generalized decreased level of awareness around him. CURRENT MEDICATIONS: Include, 1. Albuterol/ipratropium nebs q.4 hours. 2. Aspirin 81 mg daily. 3. Atorvastatin 40 mg daily. 4. Cefdinir 300 mg b.i.d. 5. Enoxaparin 40 mg subcutaneously at night. 6. Lasix 40 mg IV b.i.d. 7. Hydralazine 25 mg q.8 hours. 8. Isosorbide dinitrate 10 mg q.12 hours. 9. Ivabradine 5 mg b.i.d. 10. Claritin 10 mg as needed. 11. Toprol-XL 25 mg q.12 hours. 12. Milrinone currently at 0.375 mcg/kg per minute. 13. Dulera 200/5 mcg inhaler 2 puffs twice a day. 14. Morphine 2 mg q.4 hours p.r.n. 15. Potassium chloride at 20 mEq b.i.d. 16. Prednisone 40 mg daily. 17. Flomax 0.4 mg daily. His telemetry was reviewed. About 04:30 in the morning, he had about 3 runs of atrial tachycardia at a rate of roughly around 140 to 150. Cannot really tell if it is atrial flutter or MAT but it is definitely an atrial source. PHYSICAL EXAMINATION: VITAL SIGNS: His current vitals are heart rate 80, blood pressure 142/82, his oxygen saturation is 98% on 2 L. GENERAL: He is lethargic, but he will open his eyes and respond appropriately. HEENT: Showed EOMI. Nasal cannula in place. Oropharynx with moist mucosa. NECK: His JVP is approximately 10 cm. PULMONARY: He has bilateral Velcro-like crackles much more prominent high on the left lung. CARDIAC: He has regular rate and rhythm with normal S1, S2. There is 2/6 holosystolic murmur at the apex and also 1/6 diastolic murmur at the right sternal border. ABDOMEN: Soft, nontender. EXTREMITIES: His lower extremities are without edema. His 24-hour I's and O's are 890 mL in and 3005 mL out. His net negative is 2115 mL. Thus, he was able to sustain very effective diuresis. LABORATORY DATA: There are no new labs. COORDINATION OF CARE WITH [facility] Dr. Eugenio Douglas, who is a critical care logging operations inspector at [facility], reviewed serial chest X-rays that was not available to us. The serial chest X-rays documented progressive worsening pulmonary fibrosis for about 2 years. Thus, Mr. Miller likely has pulmonary fibrosis. ASSESSMENT: A 74-year-old gentleman who is doing very poorly due to combination of azacitidine pneumonitis imposing on chronic progressive pulmonary fibrosis. His respiration rate has been at least 30 or higher for several days now. He is tiring out. He does have acute heart failure, likely due to azacitidine which is also known Vidaza. He is having adequate cardiac output with milrinone augmentation. His net negative fluid loss of 2.1 L attests to this. Thus, his current state is mostly not caused by his acute heart failure. However, acute failure does contribute to it. He also has a right ventricular dysfunction. This is likely due to his pulmonary condition. He has been deteriorating significantly this past week. This is actually a continuation of downward trend since November. His prognosis is extremely poor. At this point, since family does not want any escalation with care, hospice would be a very reasonable option. Please see the following for my recommendations. RECOMMENDATIONS: 1. Please do the morning labs with CBC, BMP, magnesium now. We need to know his renal status and his electrolytes so we can supplement his electrolytes to suppress the amount of arrhythmias. 2. For now, continue with milrinone 0.375 mcg/kg per minute. Apparently, it is providing enough cardiac output to sustain diuresis. He does have decreased oxygen needs, so perhaps this is helping some. 3. Please consult Palliative Care/Hospice for this case. 4. If the patient's systolic blood pressure drops below 90, stop milrinone completely, stop hydralazine completely, and also stop isosorbide completely. At that point, start dobutamine at 2.5 mcg/kg per minute. It has been a pleasure taking care of Mr. Miller. If any questions, please give me a call. Total crtitcal care is about 40 minutes. This includes personally performing history and physical, interacting with other services and meeting with his son, and adjusting medications. Job ID: [id number] MTDD
--- NOTE | 2019-12-29 14:14 | PDOC.EP ---
- Subjective Date: 12/29/19 Time: 14:12 Interval History: Pt continues to have poor respiratory status. No symptoms of palpitations. - Review of Systems Constitutional: reports: weakness. denies: chills, fever, malaise Respiratory: reports: shortness of breath, SOB with excertion Cardiology: denies: chest pain, edema, heart racing, light headedness, palpitations, swelling Gastrointestinal: denies: abdominal pain, diarrhea Musculoskeletal: denies: unstable gait, falls, neck pain, shoulder pain, arm pain, hand pain, leg pain, foot pain, other - Objective Allergies/Adverse Reactions: Allergies Allergy/AdvReac Type Severity Reaction Status Date / Time No Known Allergies Allergy Verified 12/23/19 20:47 Current Medications Acetaminophen (Acetaminophen 500 Mg Tab) 1,000 mg PO DAILY [facility] Last Admin: 12/29/19 08:10 Dose: 1,000 mg Documented by: Albuterol/Ipratropium (Ipratropium/Albuterol Sulfate 3 Ml Neb) 3 ml NEB [id number] SCH Last Admin: 12/29/19 11:09 Dose: 3 ml Documented by: Aspirin (Aspirin 81 Mg Enteric Coated Tablet) 81 mg PO DAILY [facility] Last Admin: 12/29/19 08:10 Dose: 81 mg Documented by: Atorvastatin Calcium (Atorvastatin Calcium 40 Mg Tab) 40 mg PO DAILY [facility] Last Admin: 12/29/19 08:10 Dose: 40 mg Documented by: Cefdinir (Cefdinir 300 Mg Cap) 300 mg PO BID [facility] Stop: 01/01/20 21:01 Last Admin: 12/29/19 08:10 Dose: 300 mg Documented by: Enoxaparin Sodium (Enoxaparin Sodium 40 Mg/0.4 Ml Syringe) 40 mg SC 2100 [facility] Last Admin: 12/28/19 22:25 Dose: 40 mg Documented by: Furosemide (Furosemide 40 Mg/4 Ml Vial) 40 mg SLOW IVP 0600 [facility] Hydralazine HCl (Hydralazine 25 Mg Tab) 25 mg PO Q8HR [facility] Last Admin: 12/29/19 13:11 Dose: Not Given Documented by: Milrinone Lactate/Dextrose 20 (mg/ Device) 100 mls @ 9.359 mls/hr IV INF [facility]; Protocol Last Admin: 12/29/19 03:02 Dose: 100 mls Documented by: Dobutamine HCl/Dextrose 500 mg (/ Device) 250 mls @ 5.985 mls/hr IVPB INF [facility]; Protocol Isosorbide Dinitrate (Isosorbide Dinitrate 5 Mg Tab) 20 mg PO Q12HR [facility] Ivabradine (Ivabradine 5 Mg Tab) 5 mg PO BID [facility] Last Admin: 12/29/19 11:09 Dose: Not Given Documented by: Loratadine (Loratadine 10 Mg Tab) 10 mg PO DAILYPRN PRN PRN Reason: .ITCHING Melatonin (Melatonin 3 Mg Tab) 3 mg PO HS PRN PRN Reason: Insomnia Last Admin: 12/24/19 22:11 Dose: 3 mg Documented by: Metoprolol Succinate (Metoprolol Succinate Xl 25 Mg Tab) 25 mg PO Q12HR [facility] Last Admin: 12/29/19 08:10 Dose: 25 mg Documented by: Mometasone Furoate/Formoterol Fumar (Mometasone 200 Mcg/Formoterol 5 Mcg 120 Puff Inhaler) 2 puff INH BID-RT [facility] Last Admin: 12/29/19 08:54 Dose: 2 puff Documented by: Morphine Sulfate (Morphine 2 Mg/Ml Vial) 2 mg SLOW IVP Q4H PRN PRN Reason: Pain Last Admin: 12/29/19 00:10 Dose: 2 mg Documented by: Potassium Chloride (Potassium Chloride 20 Meq Tab) 20 meq PO BID [facility] Last Admin: 12/29/19 08:10 Dose: 20 meq Documented by: Prednisone (Prednisone 20 Mg Tab) 40 mg PO QAM-WM [facility] Last Admin: 12/29/19 08:09 Dose: 40 mg Documented by: Sodium Chloride (Flush - Normal Saline 10 Ml Syringe) 10 ml IVF PRN PRN PRN Reason: Saline Flush Tamsulosin HCl (Tamsulosin Hcl 0.4 Mg Cap) 0.4 mg PO DAILY [facility] Last Admin: 12/29/19 08:10 Dose: 0.4 mg Documented by: Vital Signs & Weight: Vital Signs Temp Pulse Resp BP Pulse Ox 12/29/19 13:11 87 12/29/19 11:09 87 24 H 97 12/29/19 08:37 82 20 100 12/29/19 08:00 99 12/29/19 07:18 96.3 F L 12/29/19 06:05 82 146/81 H 12/29/19 04:00 98.0 F Admit Weight 185 lb 3.013 oz Weight 167 lb 9.6 oz I/O: I/O 12/28/19 12/29/19 12/30/19 06:59 06:59 06:59 Intake Total 733 890 Output Total 2535 3005 Balance -1802 -2115 - Physical Exam General: alert & oriented x3, other (appears depressed) HEENT: normocephaly Neck: supple neck, no JVD/HJR Cardiology: regular rate and rhythm. negative: audible murmur Lungs: clear to auscultation, no wheeze, rales, rhonchi Neurology: grossly intact Abdomen: unremarkable, soft, non-tender Extremities: warm Musculoskeletal: no pain - Labs Result Diagrams: 12/29/19 08:57 12/29/19 08:57 - EKG Interpretation EKG Method: Telemetry EKG shows: Sinus rhythm (rare Atrial tach) - Assessment/Plan Assessment/Plan: 1. Focal atrial tachycardia - paroxysmal - likely right atrial in origin 2. Acute congestive heart failure - new onset, felt to be aftermath of Vidaza(azacitidine). - LVEF ~15% - Per Dr Shelley - GDMT - will require Lifevest at DC. Consider ICD if LVEF <35% in 3 months despite GDMT. 3. Hx CAD 3. Advanced pulmonary disease - CT showed fibrosis - per pulmonology 5. CKD 6. HTN 7. Chronic anemia 8. ventricular tachycardia, nonsustained transferred to ICU due to respiratory distress. Yesterday on telemetry he is seen to have frequent episodes of focal atrial tachycardia, likely right atrial in origin with single morphology of P waves ( but distinctly different than sinus rhythm P-waves) that are upright in the inferior leads and V1. Some episodes were sustaining for 10-15 minutes before terminating and the burden continues to increase. Atrial tachycardia ventricular rates are approximately 120 beats per minute. His PVC burden is also increased, occasionally with couplets and bigeminy, and he is having nonsustained ventricular tachycardia runs as well. he is on beta-ronnell therapy, I would avoid amiodarone therapy unless absolutely necessary given his advanced pulmonary disease/fibrosis. 12/29/19. slight improvement on Atrial tachycardia burden. Fammily declines agressive interventions, Plan is Hospice care. EP would sign off. Thank you for the consult. Call if questions.
--- NOTE | 2019-12-29 15:52 | PDOC.HOSPP ---
- Subjective Encounter Date: 12/29/19 Encounter Time: 15:50 Subjective: I met with the patient and his family this morning at the bedside. They have elected to transition to comfort care. [facility] to see them today. - Objective Vital Signs & Weight: Vital Signs (12 hours) Temp Pulse Resp BP Pulse Ox 12/29/19 14:30 89 22 H 100 12/29/19 13:11 87 12/29/19 11:09 87 24 H 97 12/29/19 08:37 82 20 100 12/29/19 08:00 99 12/29/19 07:18 96.3 F L 12/29/19 06:05 82 146/81 H 12/29/19 04:00 98.0 F Weight Admit Weight 185 lb 3.013 oz Weight 167 lb 9.6 oz Most Recent Monitor Data Heart Rate from ECG 87 NIBP 147/84 NIBP BP-Mean 105 Respiration from ECG 28 SpO2 99 I&O: 12/28/19 12/29/19 12/30/19 06:59 06:59 06:59 Intake Total 733 890 Output Total 2535 3005 Balance -1802 -2115 Result Diagrams: 12/29/19 08:57 12/29/19 08:57 Radiology Reviewed by me: Yes EKG Reviewed by me: Yes Hospitalist ROS - Review of Systems ROS unobtainable: due to mental status Respiratory: reports: shortness of breath, SOB with excertion Cardiovascular: reports: orthopnea, paroxysmal noc. dyspnea Gastrointestinal: reports: nausea - Exam General Appearance: awake alert, ill appearing Neck: supple, no JVD Heart: RRR, no murmur Respiratory: CTAB, no wheezes, no rales, no ronchi, normal chest expansion Gastrointestinal: soft, non-tender, non-distended, normal bowel sounds, no palpable masses Extremities: no edema Neurological: cranial nerve grossly intact, normal sensation to touch, no weakness Musculoskeletal: normal tone, normal strength Psychiatric: normal affect, normal behavior, A&O x 3 Hosp A/P (1) Acute and chronic respiratory failure with hypoxia Code(s): J96.21 - ACUTE AND CHRONIC RESPIRATORY FAILURE WITH HYPOXIA Status: Acute (2) Acute exacerbation of CHF (congestive heart failure) Code(s): I50.9 - HEART FAILURE, UNSPECIFIED Status: Acute Qualifiers: Heart failure type: combined systolic and diastolic Qualified Code(s): I50.43 - Acute on chronic combined systolic (congestive) and diastolic (congestive) heart failure (3) COPD (chronic obstructive pulmonary disease) Status: Chronic Qualifiers: COPD type: chronic bronchitis Chronic bronchitis type: mucopurulent Qualified Code(s): J41.1 - Mucopurulent chronic bronchitis (4) PNA (pneumonia) Code(s): J18.9 - PNEUMONIA, UNSPECIFIED ORGANISM Status: Suspected Qualifiers: Pneumonia type: due to unspecified organism Laterality: bilateral - Plan #1. Acute respiratory failure with hypoxia. We will continue O2 supplementation. 12/27/2019. Patient seems to be struggling at this time. We will go ahead and move him down to [facility] for closer monitoring. He may ultimately benefit from high flow nasal cannula. 2.. Acute CHF exacerbation likely systolic dysfunction. Echo shows an EF around 15%. I agree with diuresis. Continue guideline directed medical therapy. 12/26/2019. Continue diuresis as above. 12/27/2019. Continue diuresis as above. 3. Ischemic cardiomyopathy. His EF was 15 to 20%. We appreciate cardiology's recommendations. He apparently had ischemic work-up in the last few weeks with his business insight and analytics manager. 4. Hypertensive heart and chronic kidney disease. #5. Suspected pneumonia. I will continue empiric antibiotics for now. #6. History of myelodysplastic syndrome. He is on Vidaza. 12/28/2019. I discussed with the business insight and analytics manager and we agreed to transfer him to higher level of care but family declined the transfer. They are now leaning towards comfort measures. I have asked palliative care to go visit with the family and they would likely transition him to hospice for comfort care. 12/29/2019. Diagnosis as above. Patient will be transitioned to comfort care per him and his family's wish.
[2019-12-29] MEDS ORDERED: Isosorbide Dinitrate 5 MG TAB PO SCH (21:00)
--- NOTE | 2019-12-30 04:01 | PQF ---
Dear : Faisal Page Date: 12/30/19 Please exercise your independent, professional judgment in responding to the clarification form. Clinical indicators are provided on the bottom of this form for your review Can you please further clarify the diagnosis of the patient? Please check appropriate box(es): [ x ] Sepsis due to Pneumonia [ x ] Septic Shock [ ] Localized infection without Sepsis [ ] Other diagnosis [ ] Unable to determine Physician Signature: Date/Time: For continuity of documentation, please document condition throughout progress notes and discharge summary. Thank You. To be completed by CDI/Coding staff for physician review: Present Clinical Indicators - Signs / Symptoms / Labs Results and Location in Medical Record [ x ] Worsening weakness and SOB ED Provider pg.1 [ x ] VS: BP 90/59, RR: 24, P: 98, ED Provider pg.2 [ x ] Hypotensive, tachypneic ED Provider pg.3 [ x ] Chest xray: patchy infiltrates to the left lingular lobe to the left, right middle to right lower lobe ED Provider pg.3 [ x ] Severe sepsis with pneumonia ED Provider pg.3 [ x ] Sepsis ED Provider pg.4 [ x ] Hypotensive requiring pressors H and P pg.1 [ x ] Severe sepsis with septic shock H and P pg.4 [ x ] Suspected pneumonia, I karon continue empiric antibiotics Hospitalist PN [id number] [ x ] WBC: 7.0, 6.2, 5.7, 8.9, 11.9H, 16.2H, 12.3H Laboratory [ x ] Lactic acid: 2.7H, 3.8H [ x ] Blood culture no growth in 5 days Microbiology Present Risk Factors Results and Location in Medical Record [ x ] Leukemia ED Provider pg.1 [ x ] 74 years old ED Provider pg.1 [ x ] COPD ED Provider pg.1 [ x ] MDS H and P pg.1 [ x ] Pneumonia H and P pg.4 [ x ] Acute exacerbation CHF Hospitalist PN pg.2 Present Treatments Results and Location in Medical Record [ x ] Levophed MAR [ x ] IV antibiotics MAR [ x ] IV Fluids MAR [ x ] Chest X ray 12/22 Chest X ray 12/22 [ x ] Chest CT 12/23 [ x ] Pulmonary Consult Dr. Owens 12/24 [ x ] WBC/ lactic acid monitoring Laboratory [ x ] Blood culture Microbiology This is a permanent part of the Medical Record MTDD
[2019-12-30] MEDS ORDERED: Furosemide 40 MG/4 ML VIAL SLOW IVP SCH (06:00)
== END 2019-12-29 14:32 | disposition hospice, inpatient (51) | DRG 871 ==
LOC: ERS 13:48 → CCU 16:53 → IMCU/EMU 12-24 00:41 → 2NO 12-24 17:33 → CCU 12-28 02:17 → IMCU/EMU 12-28 15:30
PROVIDERS: ADMIT Hospitalist; ATTEND Hospitalist
PROC: 3E043XZ Introduction of Vasopressor into Central Vein, Percutaneous Approach (ICD-10-PCS; principal; 2019-12-23)
PROC: 02HV33Z Insertion of Infusion Device into Superior Vena Cava, Percutaneous Approach (ICD-10-PCS; 2019-12-23)
PROC: B548ZZA Ultrasonography of Superior Vena Cava, Guidance (ICD-10-PCS; 2019-12-23)
PROC: 02HV33Z Insertion of Infusion Device into Superior Vena Cava, Percutaneous Approach (ICD-10-PCS; 2019-12-26)
PROC: B548ZZA Ultrasonography of Superior Vena Cava, Guidance (ICD-10-PCS; 2019-12-26)
DX: A41.9 Sepsis, unspecified organism (principal); J18.9 Pneumonia, unspecified organism; J96.21 Acute and chronic respiratory failure with hypoxia; I50.43 Acute on chronic combined systolic (congestive) and diastolic (congestive) heart failure; R65.21 Severe sepsis with septic shock; I13.0 Hypertensive heart and chronic kidney disease with heart failure and stage 1 through stage 4 chronic kidney disease, or unspecified chronic kidney disease; C95.90 Leukemia, unspecified not having achieved remission; N17.9 Acute kidney failure, unspecified; E87.1 Hypo-osmolality and hyponatremia; I47.2 Ventricular tachycardia; Z66 Do not resuscitate; Z20.828 Contact with and (suspected) exposure to other viral communicable diseases; I25.10 Atherosclerotic heart disease of native coronary artery without angina pectoris; D46.9 Myelodysplastic syndrome, unspecified; I25.5 Ischemic cardiomyopathy; N18.9 Chronic kidney disease, unspecified; D63.1 Anemia in chronic kidney disease; I47.9 Paroxysmal tachycardia, unspecified; L40.9 Psoriasis, unspecified; J41.1 Mucopurulent chronic bronchitis; E11.22 Type 2 diabetes mellitus with diabetic chronic kidney disease; Z87.891 Personal history of nicotine dependence; Z79.82 Long term (current) use of aspirin; Z79.899 Other long term (current) drug therapy; Z99.81 Dependence on supplemental oxygen; Z95.1 Presence of aortocoronary bypass graft; J84.10 Pulmonary fibrosis, unspecified; T45.1X5A Adverse effect of antineoplastic and immunosuppressive drugs, initial encounter
CPT/HCPCS: 36415; 36556; 36569; 71045; 71250; 74018; 80048; 80053; 81001; 82805; 83605; 83735; 83880; 85007; 85025; 85027; 87040; 93005; 93306; 94640; 94660; 96365; 96366; 96368; 96375; C1751; J0171; J0692; J1644; J1650; J1940; J1956; J2260; J2270; J2920; J3370; J3475; J3490; J7030; J7512; J7620; U0002

== ENCOUNTER 2019-12-29 14:41 | Inpatient (IN) | payer OTHER ==
[2019-12-29] MEDS ORDERED: Ondansetron PF 4 MG/2 ML Vial IVP PRN (15:15)
[2019-12-29] MEDS ORDERED: Milrinone 20 MG in Sodium Chloride 0.9% 100 ML IVPB SCH (15:30)
[2019-12-29] MEDS: Milrinone Lactate/D5W 20 MG in Premix Bag 1 BAG IVPB SCH (16:12)
[2019-12-29] MEDS: Morphine 2 MG/ML VIAL SLOW IVP SCH ×2 (16:18→21:30)
[2019-12-29] MEDS: Lorazepam 2 MG/ML VIAL SLOW IVP SCH ×2 (16:18→21:17)
[2019-12-29 23:05] VITALS: BMI 26.5
[2019-12-30] MEDS: Lorazepam 2 MG/ML VIAL SLOW IVP SCH ×6 (00:54→21:09)
[2019-12-30] MEDS: Morphine 2 MG/ML VIAL SLOW IVP SCH ×6 (00:55→22:56)
[2019-12-30] MEDS: Milrinone Lactate/D5W 20 MG in Premix Bag 1 BAG IVPB SCH ×2 (02:04→23:48)
[2019-12-30] MEDS: Furosemide 40 MG/4 ML VIAL SLOW IVP SCH (07:48)
[2019-12-30] MEDS: Piperacillin/Tazobactam 3.375 GM in Sodium Chloride 0.9% 100 ML IVPB SCH ×2 (09:07→14:35)
--- NOTE | 2019-12-30 09:54 | PRG ---
DATE OF SERVICE: 12/30/2019 SERVICE: Advanced Heart Failure Cardiology Consulting Service. SUBJECTIVE: Mr. Miller had an improving day. He was quite short of breath and tachypneic. Due to deteriorating condition and the high likelihood of not getting better, the family had decided to transition to hospice care. Dr. Eugenio Douglas, who is a critical care bridge operator slip at [facility], reviewed the past chest x-rays on Mr. Miller that were not available to us. Per his description, Mr. Miller had developed pulmonary fibrosis about 2 years ago. The pulmonary fibrosis has been progressive. Evidence suggest his hypoxia and difficulty breathing are most likely due to pulmonary fibrosis for the last 18 months. He did receive azacitidine for myelodysplastic syndrome. This is known to cause pneumonitis and acute heart failure; therefore, azacitidine likely worsened his pulmonary fibrosis. He has gained some energy level since yesterday, but he is still very weak, very lethargic, and he was able to eat small amount of breakfast, but overall still not very interactive and very fatigue. However, he is more comfortable today. REVIEW OF SYSTEMS: GENERAL: He is fatigued. HEENT: There is no change in vision, hearing, or swallowing. PULMONARY: Continued to be shortness of breath. CARDIAC: There is no complaint of chest pain or syncope. GI: He does not feel like eating. : Has a Alexander in place. MUSCULOSKELETAL: Unlike yesterday, he is not complaining of diffuse muscle or joint pains. INTEGUMENT: There is no new skin breakdown. NEUROLOGIC: There are no focal deficits or weaknesses. MEDICATIONS: His principal cardiac medications: 1. Milrinone at 0.375 mcg/kg per minute. 2. Lasix 40 mg IV daily. PHYSICAL EXAMINATION: VITAL SIGNS: Heart rate 100, blood pressure 121/85, his oxygen saturation is 93% on 2 L oxygen. His telemetry was reviewed, it is primarily sinus tachycardia with occasional PACs and PVCs. There are no concerning arrhythmias. GENERAL: He is lethargic, but a little bit more alert yesterday and able to speak in short sentences. However, he is still short of breath. HEENT: EOMI. Oropharynx is benign with moist mucosa. NECK: JVP is about 9 cm with positive hepatojugular reflux. PULMONARY: He has bilateral Velcro-like crackles, much more worse on the left than right. CARDIAC: Tachycardic. Normal S1, S2. There is 1/6 diastolic murmur at the right sternal border and also 2/6 holosystolic murmur near the apex. ABDOMEN: Soft, nontender. Positive bowel sounds. : Alexander in place, is draining out quite a bit of fluid. EXTREMITIES: Lower extremity without edema. ASSESSMENT: 1. Pulmonary fibrosis. 2. Azacitidine chemotherapy-induced pneumonitis. 3. Azacitidine chemotherapy-induced acute heart failure. 4. Paroxysmal supraventricular tachycardia, which is quiescent now. 5. Acute kidney injury. 6. myelodysplastic syndrome. From his history, his chest x-ray review provided by Dr. Eugenio Douglas from [facility], clinical findings, his chest x-rays, and CT scan all lined up to show that he has progressive and likely end-stage pulmonary fibrosis. It is not likely that he can improve from such a state. His azacitidine, which known to cause acute pneumonitis and acute heart failure, probably occurred in this patient. The combination of acute heart failure and pneumonitis worse in his entire situation. Currently, combination of milrinone and furosemide is providing quite a bit of comfort. This combination took out the pulmonary edema component off the fact, so that is providing much comfort and allows him to breathe. However, it is likely that he will not live very long due to his progressive lung disease. By providing sufficient cardiac output and diuresis, we will take out the pulmonary edema components off his suffering. He will benefit with better quality of life since last days being on hospice. Please see the following for my recommendations. RECOMMENDATIONS: 1. Consider continuing milrinone at 0.375 mcg/kg per minute. 2. Please continue Lasix 40 mg IV daily. May increase to twice a day if needed for further diuresis, currently 40 mg IV daily seemed to be sufficient. He had 2.1 L output yesterday with very little input, so he is still net negative about 1.5 L that is more than enough. 3. If he is starting to encounter arrhythmias, we may consider provide potassium supplement at 20 mEq daily. I wished that outcome can be better. It has been a pleasure taking care of Mr. Miller. Since the Mr. Miller will be going to hospice, I will be signing off on this case now. The total final ICU time for this patient is 30 minutes. Job ID: [id number] MTDD
[2019-12-31] MEDS: Lorazepam 2 MG/ML VIAL SLOW IVP SCH ×3 (05:19→09:02)
[2019-12-31] MEDS: Morphine 2 MG/ML VIAL SLOW IVP SCH ×3 (05:20→09:01)
[2019-12-31] MEDS: Furosemide 40 MG/4 ML VIAL SLOW IVP SCH (08:54)
[2019-12-31] MEDS: Milrinone Lactate/D5W 20 MG in Premix Bag 1 BAG IVPB SCH (13:31)
[2019-12-31] MEDS: Lorazepam 2 MG/ML VIAL SLOW IVP PRN (19:36)
[2020-01-01] MEDS: Morphine 2 MG/ML VIAL SLOW IVP PRN (00:13)
[2020-01-01] MEDS: Lorazepam 2 MG/ML VIAL SLOW IVP PRN (00:13)
[2020-01-01] MEDS: Milrinone Lactate/D5W 20 MG in Premix Bag 1 BAG IVPB SCH ×2 (00:20→13:12)
[2020-01-01] MEDS: Furosemide 40 MG/4 ML VIAL SLOW IVP SCH (08:23)
[2020-01-01] MEDS: Morphine 2 MG/ML VIAL SLOW IVP SCH ×2 (14:10→22:10)
[2020-01-02] MEDS: Milrinone Lactate/D5W 20 MG in Premix Bag 1 BAG IVPB SCH ×3 (00:36→21:28)
[2020-01-02] MEDS: Morphine 2 MG/ML VIAL SLOW IVP SCH ×4 (07:10→21:16)
[2020-01-02] MEDS: Furosemide 40 MG/4 ML VIAL SLOW IVP SCH (07:13)
[2020-01-02] MEDS: Morphine 2 MG/ML VIAL SLOW IVP PRN ×2 (10:13→12:31)
[2020-01-02] MEDS: Lorazepam 2 MG/ML VIAL SLOW IVP PRN (11:39)
[2020-01-02] MEDS: diphenhydrAMINE 50 MG/ML VIAL IVP PRN (21:23)
[2020-01-03] MEDS: Morphine 2 MG/ML VIAL SLOW IVP SCH ×4 (01:09→12:52)
[2020-01-03] MEDS: diphenhydrAMINE 50 MG/ML VIAL IVP PRN ×4 (06:02→21:59)
[2020-01-03] MEDS: Furosemide 40 MG/4 ML VIAL SLOW IVP SCH (08:32)
[2020-01-03] MEDS: Morphine 2 MG/ML VIAL SLOW IVP PRN ×3 (10:49→14:52)
[2020-01-03] MEDS: Lorazepam 2 MG/ML VIAL SLOW IVP PRN (12:49)
[2020-01-03] MEDS ORDERED: Morphine 4 MG/ML VIAL SLOW IVP PRN (15:45)
[2020-01-03] MEDS: Morphine 4 MG/ML VIAL SLOW IVP SCH ×5 (16:03→23:38)
[2020-01-03] MEDS: Lorazepam 2 MG/ML VIAL SLOW IVP SCH ×2 (17:13→23:38)
[2020-01-04] MEDS: Morphine 4 MG/ML VIAL SLOW IVP SCH ×11 (01:46→22:02)
[2020-01-04] MEDS: Lorazepam 2 MG/ML VIAL SLOW IVP SCH ×3 (05:49→20:22)
[2020-01-04] MEDS: Furosemide 40 MG/4 ML VIAL SLOW IVP SCH (08:00)
[2020-01-04 08:36] VITALS: BP 94/52
[2020-01-04] MEDS: Lorazepam 2 MG/ML VIAL SLOW IVP PRN ×4 (09:11→17:24)
[2020-01-04 20:20] VITALS: TEMP 101.6
[2020-01-05] MEDS: Lorazepam 2 MG/ML VIAL SLOW IVP SCH ×2 (00:04→03:58)
[2020-01-05] MEDS: Morphine 4 MG/ML VIAL SLOW IVP SCH ×4 (00:04→06:08)
== END 2020-01-05 07:04 | disposition expired | DRG 951 ==
LOC: IMCU/EMU 14:41 → 2NO 12-30 18:41 → ONC 01-01 09:55
PROVIDERS: ADMIT Family Medicine; ATTEND Family Medicine
DX: Z51.5 Encounter for palliative care (principal); A41.9 Sepsis, unspecified organism; I50.21 Acute systolic (congestive) heart failure; R65.21 Severe sepsis with septic shock; J96.21 Acute and chronic respiratory failure with hypoxia; I47.1 Supraventricular tachycardia; N17.9 Acute kidney failure, unspecified; Z66 Do not resuscitate; Z20.828 Contact with and (suspected) exposure to other viral communicable diseases; J44.9 Chronic obstructive pulmonary disease, unspecified; J84.10 Pulmonary fibrosis, unspecified; D46.9 Myelodysplastic syndrome, unspecified; J70.4 Drug-induced interstitial lung disorders, unspecified; T45.1X5A Adverse effect of antineoplastic and immunosuppressive drugs, initial encounter; I25.5 Ischemic cardiomyopathy; I25.10 Atherosclerotic heart disease of native coronary artery without angina pectoris; Z99.81 Dependence on supplemental oxygen; Z95.1 Presence of aortocoronary bypass graft; Z87.891 Personal history of nicotine dependence
CPT/HCPCS: 36416; J1200; J1940; J2060; J2260; J2270